=== PATIENT | male | born 1955 | race Caucasian/White ===

== ENCOUNTER 2018-05-24 22:05 | Emergency (ER) | payer OTHER ==
--- NOTE | 2018-05-24 22:46 | PDOC ---
History of Present Illness - General Chief Complaint: Pain, Acute Stated Complaint: SICK, ELEVATED BP History Source: Patient Exam Limitations: No Limitations - History of Present Illness Initial Comments: 05/24/18 22:39 63 yo M with a hx of HTN, HLD, BPH, depression, nephrolithiasis, and lyme disease presents to the emergency department with malaise since Friday. Per the patient, he felt like he has been "sick" since Friday. He endorses working with a coworker who was sick. Per the patient, he had had the following symptoms: dehydration, fever (yesterday, but declines so today), body aches, dysuria, SOB , nausea, non-productive cough, diarrhea (without hematochezia) and SOB. Concurrently, he has had periumbilical abdominal pain that radiates to the RUQ and LUQ that is cramping like sensation, 3/10, random onset. Per EMS, his BP was 196/120 initially and he denied chest pain, lightheadedness., headaches, and visual changes. Denies hematuria, ears and nose pain, and leg pain/ swelling. No recent travels, hx of DVT/PE, and recent surgeries. Shx: None Meds: buproprion, amlodipine, sertraline, tamsulosin, Allergies: NKDA Social: Denies tobacco, alcohol, and substance abuse. Past History - Past Medical History Allergies/Adverse Reactions: Allergies Allergy/AdvReac Type Severity Reaction Status Date / Time No Known Allergies Allergy Verified 05/24/18 22:33 Home Medications: Ambulatory Orders Amlodipine Besylate 5 mg PO DAILY 11/03/15 Buspirone HCl [Buspar -] 10 mg PO DAILY 11/03/15 Lisinopril [Zestril] 20 mg PO DAILY 11/03/15 Sertraline HCl 200 mg PO DAILY MDD 200mg 11/03/15 Tamsulosin HCl [Flomax -] 0.4 mg PO DAILY 11/09/15 HTN: Yes - Immunization History Immunization Up to Date: Yes - Suicide/Smoking/Psychosocial Hx Smoking History: Never smoked Have you smoked in the past 12 months: No Information on smoking cessation initiated: No Hx Alcohol Use: No Drug/Substance Use Hx: No Substance Use Type: None Review of Systems - Review of Systems Able to Perform ROS?: Yes Comments:: 05/24/18 22:46 pharyngeal erythema. epigastric tenderness. negative CVA. rhonchi in the lower base lungs. TMs good. Negative LAD. Is the patient limited Arabic proficient: No Constitutional: Yes: Malaise, Weakness. No: Chills, Unexplained wgt Loss HEENTM: No: Eye Pain, Recent change in vision, Ear Pain, Nose Pain, Throat Pain , Mouth Pain Respiratory: Yes: Cough, Shortness of Breath. No: SOB with Exertion, Productive cough, Hemoptysis Cardiac (ROS): No: Chest Pain, Irregular Heart Rate, Lightheadedness, Chest Tightness ABD/GI: Yes: Diarrhea, Nausea, Abdominal cramping. No: Poor Appetite, Poor Fluid Intake, Rectal Bleeding, Vomiting, Tarry Stools : Yes: Dysuria. No: Burning, Hematuria, Incontinence Musculoskeletal: No: Back Pain, Joint Pain, Neck Pain Integumentary: No: Bruising, Erythema, Rash Neurological: No: Headache, Numbness, Tingling, Tremors, Dizziness Psychiatric: Yes: Anxiety. No: Depression, Change in Appetite Endocrine: No: Unexplained Weight Gain Hematologic/Lymphatic: No: Anemia *Physical Exam - Vital Signs Last Vital Signs Temp Pulse Resp BP Pulse Ox 99 F 116 H 20 152/100 99 05/24/18 22:05 05/24/18 22:05 05/24/18 22:05 05/24/18 22:05 05/24/18 22:05 - Physical Exam General Appearance: Yes: Nourished, Appropriately Dressed. No: Apparent Distress, Intoxicated, Cachetic HEENT: positive: EOMI, MAXINE, Normal ENT Inspection, Normal Voice, Symmetrical, TMs Normal, Pharynx Normal, Hearing Grossly Normal. negative: Pale Conjunctivae , Scleral Icterus (R), Scleral Icterus (L), Pharyngeal Erythema, Tonsillar Exudate, Tonsillar Erythema, Nasal Congestion, Rhinorrhea, Sinus Tenderness, Excessive drooling Neck: positive: Trachea midline, Supple. negative: Tender, Lymphadenopathy (R) , Lymphadenopathy (L), Tender lateral, Tender midline Respiratory/Chest: positive: Lungs Clear, Normal Breath Sounds, Rapid RR. negative: Chest Tender, Respiratory Distress, Accessory Muscle Use, Rales, Rhonchi, Stridor, Wheezing Cardiovascular: positive: Regular Rhythm, S1, S2, Tachycardia. negative: Systolic Murmur Gastrointestinal/Abdominal: positive: Normal Bowel Sounds, Tender (periumbilical ), Flat, Soft. negative: Distended, Guarding, Rebound Lymphatic: negative: Adenopathy Musculoskeletal: positive: Normal Inspection. negative: CVA Tenderness, Vertebral Tenderness Extremity: positive: Normal Capillary Refill, Normal Inspection, Normal Range of Motion. negative: Tender, Swelling, Calf Tenderness Integumentary: positive: Normal Color, Dry, Warm. 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 negative: Normal Mood/Affect (anxious), EOM Palsy , Facial Droop, Sensory Deficit Moderate Sedation - Procedure Monitoring Vital Signs: Procedure Monitoring Vital Signs Temperature 99 F 05/24/18 22:05 Pulse Rate 116 H 05/24/18 22:05 Respiratory Rate 20 05/24/18 22:05 Blood Pressure 152/100 05/24/18 22:05 O2 Sat by Pulse Oximetry (%) 99 05/24/18 22:05 Heart Score/ECG Review - ECG Intrepretation Comment:: ventricular rate is 114 bpm, TX is 144 ms, QRS is 108 ms, QTc is 464 ms. sinus tachycardia without ST elevation or depression. ED Treatment Course - LABORATORY CBC & Chemistry Diagram: 05/24/18 23:50 05/24/18 23:50 Medical Decision Making - Medical Decision Making 63 yo M with a hx of HTN, HLD, BPH, depression, nephrolithiasis, and lyme disease presents to the emergency department with malaise since Friday. Initial vitals; Initial Vital Signs Temp Pulse Resp BP Pulse Ox 99 F 116 H 20 152/100 99 05/24/18 22:05 05/24/18 22:05 05/24/18 22:05 05/24/18 22:05 05/24/18 22:05 Work up: ddx: URI vs influenza vs strep throat (patient endorses sore throat) vs PNA vs ACS vs PNA vs pleuritis vs pericarditis vs pancreatitis vs gastritis vs GERD vs mesenteric ischemia Laboratory Tests 05/24/18 05/24/18 05/24/18 23:50 23:50 23:50 WBC 8.2 RBC 5.17 Hgb 16.3 Hct 44.3 MCV 85.8 MCH 31.5 MCHC 36.7 H RDW 14.3 Plt Count 147 MPV 7.7 Absolute Neuts (auto) 6.2 Neutrophils % 75.6 Lymphocytes % 14.5 Monocytes % 9.3 Eosinophils % 0.4 Basophils % 0.2 Nucleated RBC % 1 H Sodium Potassium Chloride Carbon Dioxide Anion Gap BUN Creatinine Creat Clearance w eGFR Random Glucose Lactic Acid Calcium Phosphorus Magnesium Total Bilirubin AST ALT Alkaline Phosphatase Creatine Kinase Troponin I Total Protein Albumin Lipase Urine Color Urine Appearance Urine pH Ur Specific [place] Urine Protein Urine Glucose (UA) Urine Ketones Urine Blood Urine Nitrite Urine Bilirubin Urine Urobilinogen Ur Leukocyte Esterase Urine WBC (Auto) Urine RBC (Auto) Urine Casts (Auto) U Epithel Cells (Auto) Urine Crystals (Auto) Urine Bacteria (Auto) Influenza A (Rapid) Negative Influenza B (Rapid) Negative Group A Strep Rapid Negative 05/24/18 05/24/18 05/25/18 23:50 23:50 02:25 WBC RBC Hgb Hct MCV MCH MCHC RDW Plt Count MPV Absolute Neuts (auto) Neutrophils % Lymphocytes % Monocytes % Eosinophils % Basophils % Nucleated RBC % Sodium 138 Potassium 3.0 L Chloride 110 H Carbon Dioxide 19 L Anion Gap 9 BUN 21 H Creatinine 1.3 Creat Clearance w eGFR 55.58 Random Glucose 120 H Lactic Acid 1.5 Calcium 10.7 H Phosphorus 1.4 L Magnesium 2.3 Total Bilirubin 0.6 AST 25 ALT 39 Alkaline Phosphatase 78 Creatine Kinase 91 Troponin I < 0.02 Total Protein 7.0 Albumin 3.7 Lipase 101 Urine Color Yellow Urine Appearance Clear Urine pH 5.5 Ur Specific [place] 1.027 Urine Protein 2+ Urine Glucose (UA) Negative Urine Ketones Trace H Urine Blood 2+ Urine Nitrite Negative Urine Bilirubin Negative Urine Urobilinogen 0.2 Ur Leukocyte Esterase Negative Urine WBC (Auto) 1 Urine RBC (Auto) 20 Urine Casts (Auto) 5 U Epithel Cells (Auto) 1.3 Urine Crystals (Auto) None seen Urine Bacteria (Auto) 0.666 Influenza A (Rapid) Influenza B (Rapid) Group A Strep Rapid patient had no CVA tenderness. patient had cbc within normal limits and labs were normal save for the following: UA shows 2+ blood with 20 RBCs, hypophosphatemia and hypokalemia. Patient's HR normalized once he felt less anxious. Denies rcent surgeries, hx of DVT and PE, and recent immobilization. influenza and strep negative. lipase negative. patient had significant improvement in symptoms after fluids, phosphate, and potassium were given. patient will follow up with PMD within 1 week after discharge. denies hx of nephrolithiasis. will follow up with referred urologist within 1 week for hematuria. patient was well at the time of discharge and was able to ambulate on their own volition. Dispo: Discharge *DC/Admit/Observation/Transfer Diagnosis at time of Disposition: URI (upper respiratory infection) Qualifiers: URI type: unspecified URI Qualified Code(s): J06.9 - Acute upper respiratory infection, unspecified - Discharge Dispostion Disposition: HOME Condition at time of disposition: Fair Decision to Admit order: No - Referrals Referrals: ON STAFF,NOT [Primary Care Provider] - [facility] [place] [facility] [place]Provider Group] Coleman Worrell MD., [Staff Physician] - - Patient Instructions Additional Instructions: you were seen in the emergency department for the evaluation of your malaise. your labs were within normal limits except for the following: low potassium and phosphorus. please follow up with your primary medical doctor in 1 week for follow up care and management. please return to the emergency department if you have worsening pain or new concerning symptoms such as blood in the urine, fevers, chills, intractable vomiting, and chest pain. thank you. - Post Discharge Activity
[2018-05-24 22:51] VITALS: BMI 27.4
[2018-05-24] MEDS ORDERED: ONDANSETRON 4 MG/2 ML VIAL IVPUSH ONE (23:01)
[2018-05-24] MEDS ORDERED: ACETAMINOPHEN 1000 MG/100 ML VIAL (NON FORMULARY) IVPB ONE (23:01)
[2018-05-24] MEDS ORDERED: SODIUM CHLORIDE 1,000 ML IV STA (23:01)
--- NOTE | 2018-05-24 23:27 | PDOC ---
Attending Attestation - Physicial Exam PE: 05/25/18 01:26 GENERAL: +Anxious. Afebrile. Well-appearing, well-nourished. No apparent distress. HEENT: Normocephalic, atraumatic. PERRL, EOM intact. CARDIOVASCULAR: Normal S1, S2. Regular rate and rhythm. PULMONARY: +Hyperventilating. Clear to auscultation bilaterally. ABDOMEN: +Periumbilical discomfort. Soft, non-distended. EXTREMITIES: Normal ROM in all four extremities. No gross deformities. SKIN: Warm, dry. No rash NEUROLOGICAL: No focal neurological deficits. <Hugh Hernandez - Last Filed: 05/25/18 01:26> - Resident Resident Name: Yoel Beebe - ED Attending Attestation I have performed the following: I have examined & evaluated the patient, The case was reviewed & discussed with the resident, I agree w/resident's findings & plan, Exceptions are as noted - HPI HPI: 05/24/18 23:26 pt BIBA for gen malaise,sore throat,body aches,nausea,cough since Friday - Medical Decision Making 05/24/18 23:28 diff diag includes influenza,pneumonia,viral syndrome, strep throat ,ACS, cholecystitis plan ekg,influenza,cxr,bc,ua,strep,comp,IVF 05/24/18 23:29 05/25/18 02:08 negative influenza and strep swabs cbc is wnl, there is no leukocytosis,no anemia chemistries reveals hypokalemia and he is being supplemented pt receiving IVF , urine pending <Zahida Lucas - Last Filed: 05/25/18 02:10> Attestations - Attestations 05/25/18 01:26 Documentation prepared by Hugh Hernandez, acting as medical recruiter for Zahida Lucas MD. <Hugh Hernandez - Last Filed: 05/25/18 01:26>
[2018-05-24] MEDS ORDERED: ALBUTEROL SO4 2.5/IPRATROPIUM 0.5 INH SOL 3 ML VIAL.NEB. NEB ONE ×2 (23:29→23:36)
[2018-05-25] MEDS ORDERED: ACETAMINOPHEN INJECTION 100 ML IVPB ONE
[2018-05-25] MEDS ORDERED: ONDANSETRON 4 MG/2 ML VIAL ONE
[2018-05-25 00:39] LABS: ALBUMIN 3.7 g/dl (3.4-5.0); ALK PHOS 78 U/L (45-117); ANION GAP 9 MMOL/L (8-16); BILIRUBIN,TOTAL 0.6 mg/dL (0.2-1); BLOOD UREA NITROGEN 21 mg/dL (7-18); CALCIUM 10.7 mg/dL (8.5-10.1); CHLORIDE 110 mmol/L (98-107); CO2 19 mmol/L (21-32); CREATININE 1.3 mg/dL (0.55-1.3); GLUCOSE,RANDOM 120 mg/dL (74-106); LIPASE 101 U/L (73-393); MAGNESIUM 2.3 mg/dL (1.8-2.4); PHOSPHOROUS 1.4 mg/dL (2.5-4.9); SGOT/AST 25 U/L (15-37); SGPT/ALT 39 U/L (13-61); SODIUM 138 mmol/L (136-145)
[2018-05-25 01:29] LABS: BASO % 0.2 % (0-2.0); EOS % 0.4 % (0-4.5); HEMATOCRIT 44.3 % (35.4-49); HEMOGLOBIN 16.3 GM/dL (11.7-16.9); LYMPH % 14.5 % (8-40); MCH 31.5 pg (25.7-33.7); MCHC 36.7 g/dl (32.0-35.9); MEAN CELL VOLUME 85.8 fl (80-96); MEAN PLT VOLUME 7.7 fl (7.5-11.1); MONO % 9.3 % (3.8-10.2); NEUT % 75.6 % (42.8-82.8); PLATELET COUNT 147 K/MM3 (134-434); RBC 5.17 M/mm3 (4.00-5.60); RDW 14.3 % (11.9-15.9); WHITE BLOOD COUNT 8.2 K/mm3 (4.0-10.0)
[2018-05-25] MEDS ORDERED: NAPH,MB-DB/K PH,MBDB POWDER PACKET PO ONE (01:52)
[2018-05-25] MEDS ORDERED: ALPRAZolam 0.25 MG TABLET PO ONE (02:13)
[2018-05-25] MEDS ORDERED: ALPRAZolam 0.25 MG TABLET ONE (03:10)
[2018-05-25 03:15] LABS: EPI CELLS 1.3 /HPF (0-5); HYALINE CASTS 5 /hpf (0-8); PH,URINE 5.5 (5.0-8.0); URINE APPEARANCE CLEAR; URINE BACTERIA 0.666 /hpf (NEGATIVE); URINE BILIRUBIN NEGATIVE (<2.0 mg/dL); URINE COLOR YELLOW; URINE GLUCOSE (UA) NEGATIVE (NEGATIVE); URINE KETONE TRACE (NEGATIVE); URINE LEUK ESTERASE NEGATIVE (NEGATIVE); URINE NITRITE NEGATIVE (NEGATIVE); URINE PROTEIN 2+ (NEGATIVE); URINE RBC 20 /hpf (0-4); URINE UROBILINOGEN 0.2 mg/dL (0.2-1.0); URINE WBC 1 /hpf (0-5)
[2018-05-25 04:56] VITALS: BP 142/78; PULSE 90; TEMP 98.2
[2018-05-25 08:43] LABS: URINE CRYSTALS NONE SEEN /hpf
--- NOTE | 2018-05-25 10:11 | EKG ---
Test Reason : Blood Pressure : / mmHG Vent. Rate : 114 BPM Atrial Rate : 114 BPM P-R Int : 144 ms QRS Dur : 108 ms QT Int : 336 ms P-R-T Axes : 034 072 074 degrees QTc Int : 463 ms SINUS TACHYCARDIA OTHERWISE NORMAL ECG WHEN COMPARED WITH ECG OF 08-NOV-2015 15:18, NO SIGNIFICANT CHANGE WAS FOUND Confirmed by SKIP MURPHY MD ([id number]) on 05/25/2018 10:10:51 AM Referred By: Confirmed By:SKIP MURPHY MD
== END 2018-05-25 04:59 | disposition home or self-care (01) ==
LOC: JER 22:05
DX: J06.9 Acute upper respiratory infection, unspecified (principal); I10 Essential (primary) hypertension; E78.00 Pure hypercholesterolemia, unspecified; N40.0 Benign prostatic hyperplasia without lower urinary tract symptoms; F32.9 Major depressive disorder, single episode, unspecified; Z87.442 Personal history of urinary calculi
CPT/HCPCS: 36415; 71046-TC-FY; 80053; 81003; 82550; 83605; 83690; 83735; 84100; 84484; 85025; 87040; 87070; 87086; 87804; 87880; 93005; 93010; 99282-25; J0131; J7030

== ENCOUNTER 2018-06-11 23:56 | Inpatient (IN) | payer OTHER ==
[2018-06-12 00:13] VITALS: BMI 27.4
--- NOTE | 2018-06-12 00:14 | PDOC ---
History of Present Illness - General Chief Complaint: SIRS, Suspected/Possible Stated Complaint: FEVER/CHILL Time Seen by Provider: 06/12/18 00:14 - History of Present Illness Initial Comments: 06/12/18 00:18 63 yo M with a hx of HTN, HLD, BPH, depression, nephrolithiasis, and lyme disease presents to the emergency department with several days of weakness and chills that have been ongoing since discharge from the ED several weeks ago but have become worse this evening. The patient reports that he feels fatigue, weakness, some generalized diffuse but improving chest tightness and chronic nonproductive cough. The patient denies n/v/c but admits to 1 day of loose stool today. Denies dysuria, hematuria. He has no other complaints at bedside. Past History - Past Medical History Allergies/Adverse Reactions: Allergies Allergy/AdvReac Type Severity Reaction Status Date / Time No Known Allergies Allergy Verified 06/12/18 00:11 Home Medications: Ambulatory Orders Amlodipine Besylate 5 mg PO DAILY 11/03/15 Buspirone HCl [Buspar -] 10 mg PO DAILY 11/03/15 Lisinopril [Zestril] 20 mg PO DAILY 11/03/15 Sertraline HCl 200 mg PO DAILY MDD 200mg 11/03/15 Tamsulosin HCl [Flomax -] 0.4 mg PO DAILY 11/09/15 COPD: No HTN: Yes - Immunization History Immunization Up to Date: Yes - Suicide/Smoking/Psychosocial Hx Smoking History: Never smoked Have you smoked in the past 12 months: No Information on smoking cessation initiated: No Hx Alcohol Use: No Drug/Substance Use Hx: No Substance Use Type: None *Physical Exam - Vital Signs Last Vital Signs Temp Pulse Resp BP Pulse Ox 99.9 F H 113 H 18 136/97 99 06/12/18 00:11 06/12/18 00:11 06/12/18 00:11 06/12/18 00:11 06/12/18 00:11 - Physical Exam Comments: 06/12/18 00:40 normal exam sinus tachycardia 06/12/18 00:48 ED Treatment Course - LABORATORY CBC & Chemistry Diagram: 06/12/18 00:58 06/12/18 00:58 Medical Decision Making - Medical Decision Making 06/12/18 00:34 63 yo M with a hx of HTN, HLD, BPH, depression, nephrolithiasis, and lyme disease presents to the emergency department with several days of weakness and chills that have been ongoing since discharge from the ED several weeks ago but have become worse this evening. The patient reports that he feels fatigue, weakness, some generalized diffuse but improving chest tightness and chronic nonproductive cough. The patient denies n/v/c but admits to 1 day of loose stool today. Denies dysuria, hematuria. He has n ED Course: consider ddx ibnlt: pna vs uti vs viral syndrome vs influenza r/o acs sepsis workup patient recieving 2L NS 06/12/18 00:47 EKG: sinus tachycardia 117bpm, T wave inversion inferolateral new from 05/2406/12/18 02:01 tropinemia, ginger, lactic acidosis repeat ekg ordered ASA 324 given will repeat lactic and troponin 3hr 06/12/18 02:03 patient anxious at bedside 2L NC oxygen given for comfort 06/12/18 02:15 repeat EKG with sinus tachy at 115bp with T wave inversion in II, III, aVF 06/12/18 02:30 Case discussed with inpatient medicine team *DC/Admit/Observation/Transfer Diagnosis at time of Disposition: Lactic acidosis, Elevated troponin, GINGER (acute kidney injury) - Discharge Dispostion Condition at time of disposition: Stable Decision to Admit order: Yes - Referrals Referrals: ON STAFF,NOT [Primary Care Provider] - - Patient Instructions - Post Discharge Activity
[2018-06-12] MEDS ORDERED: ACETAMINOPHEN 1000 MG/100 ML VIAL (NON FORMULARY) IVPB ONE (00:16)
[2018-06-12] MEDS ORDERED: SODIUM CHLORIDE 2,000 ML IV SCH (00:30)
[2018-06-12] MEDS ORDERED: ACETAMINOPHEN INJECTION 100 ML IVPB ONE (00:31)
[2018-06-12 01:09] LABS: BASO % 0.5 % (0-2.0); EOS % 1.5 % (0-4.5); HEMATOCRIT 46.5 % (35.4-49); HEMOGLOBIN 16.1 GM/dL (11.7-16.9); LYMPH % 3.6 % (8-40); MCH 30.4 pg (25.7-33.7); MCHC 34.5 g/dl (32.0-35.9); MEAN CELL VOLUME 88.1 fl (80-96); MEAN PLT VOLUME 7.1 fl (7.5-11.1); MONO % 4.2 % (3.8-10.2); NEUT % 90.2 % (42.8-82.8); PLATELET COUNT 172 K/MM3 (134-434); RBC 5.28 M/mm3 (4.00-5.60); RDW 14.2 % (11.9-15.9); WHITE BLOOD COUNT 8.9 K/mm3 (4.0-10.0)
--- NOTE | 2018-06-12 01:09 | PDOC ---
Attending Attestation - HPI HPI: The patient is a 63 year old male, with a significant PMH of HTN, HLD BPH, depression, nephrolithiasis, and lyme disease, who presents to the emergency department with generalized weakness and chills for several days. Patient was discharged from the ED 2.5 weeks ago for similar symptoms, and notes his symptoms have progressively worsened since. He endorses increased fatigue, diffuse chest tightness, and chronic dry cough. Patient also reports one episode of diarrhea earlier today. The patient denies shortness of breath, headache and dizziness. Denies fever, nausea, vomit, diarrhea and constipation. Denies dysuria, frequency, urgency and hematuria. Allergies: NKA Past surgical history: Social history: No reported PCP: Dr. Esperanza Mak ([facility]) 06/12/18 01:12 - Medical Decision Making Documentation prepared by JESSENIA Blue, acting as medical administrator for Winston Gruber MD. 06/12/18 01:14 <Sheron Leslie - Last Filed: 06/12/18 01:12> - Resident Resident Name: Vero France - ED Attending Attestation I have performed the following: I have examined & evaluated the patient, The case was reviewed & discussed with the resident, I agree w/resident's findings & plan, Exceptions are as noted - Physicial Exam PE: 06/12/18 04:39 Appears anxious, AOx3 NCAT Neck supple Oropharynx unremarkable LCTAB, good air movement, tachypneic Tachy, regular rhythm, no mrg Abd soft, generalized tenderness, no guarding, no rebound No c/c/e NFD - Medical Decision Making Vital sign derangement with generalized fatigue sepsis w/u no infectious focality on workup +lactate, +trop Cover broadly, fluid resus trend lactate, trend trop, ASA given Admit <Winston Gruber - Last Filed: 06/12/18 04:43>
[2018-06-12 01:23] LABS: INR 1.03 (0.83-1.09); PROTHROMBIN TIME (PATIENT) 12.1 SEC (9.7-13.0)
[2018-06-12 01:26] LABS: ACTIVATED PTT 28.6 SECONDS (25.2-36.5)
[2018-06-12 01:34] LABS: ALBUMIN 4.3 g/dl (3.4-5.0); ALK PHOS 101 U/L (45-117); ANION GAP 8 MMOL/L (8-16); BILIRUBIN,TOTAL 0.6 mg/dL (0.2-1); BLOOD UREA NITROGEN 23 mg/dL (7-18); CALCIUM 11.5 mg/dL (8.5-10.1); CHLORIDE 107 mmol/L (98-107); CO2 23 mmol/L (21-32); CREATININE 1.6 mg/dL (0.55-1.3); GLUCOSE,RANDOM 157 mg/dL (74-106); POTASSIUM 3.9 mmol/L (3.5-5.1); SGOT/AST 26 U/L (15-37); SGPT/ALT 36 U/L (13-61); SODIUM 139 mmol/L (136-145)
[2018-06-12] MEDS ORDERED: ASPIRIN 81 MG CHEWABLE TABLETS PO ONE (01:48)
[2018-06-12] MEDS ORDERED: ASPIRIN 81 MG CHEWABLE TABLETS ONE (01:54)
[2018-06-12] MEDS ORDERED: ALPRAZolam 0.25 MG TABLET PO ONE (02:59)
[2018-06-12] MEDS ORDERED: ONDANSETRON *ODT* 4 MG TABLET SL ONE (03:01)
[2018-06-12 03:02] LABS: URINE APPEARANCE Clear; URINE BILIRUBIN Negative (NEGATIVE); URINE COLOR Yellow; URINE GLUCOSE (UA) Negative (NEGATIVE); URINE KETONE Trace (NEGATIVE); URINE LEUK ESTERASE Negative (NEGATIVE); URINE NITRITE Negative (NEGATIVE); URINE PROTEIN 2+ (NEGATIVE); URINE UROBILINOGEN 0.2 mg/dL (0.2-1.0)
[2018-06-12] MEDS ORDERED: ONDANSETRON 4 MG/2 ML VIAL IVPUSH ONE (03:03)
[2018-06-12] MEDS ORDERED: ALPRAZolam 0.25 MG TABLET ONE (03:03)
[2018-06-12] MEDS ORDERED: ONDANSETRON 4 MG/2 ML VIAL ONE (03:04)
[2018-06-12] MEDS ORDERED: VANCOMYCIN 1 GM PREMIX - 1 GM/200 ML BAG IVPB ONE (03:30)
[2018-06-12] MEDS ORDERED: SODIUM CHLORIDE 1,000 ML IV SCH (03:30)
--- NOTE | 2018-06-12 03:34 | HP ---
CHIEF COMPLAINT: fatigue, weakness x 2 weeks PCP: none HISTORY OF PRESENT ILLNESS: 63 y/o M with HTN, HLD, BPH, depression, nephrolithiasis, lyme's dz (2000), who presents to the ED c/o fatigue, weakness over the past two weeks. As per pt, his sx began two weeks ago. States that at the time, he had visited his girlfriend in the hospital, since she was having heart surgery. While there, she was in an isolation room for a "heart infection," and once he donned his gown, he has felt unwell ever since. Also states that during the same time, he got into "problems with people in his apartment building." Would not describe further. These sx of weakness have been intermittent, without alleviating or exacerbating fx. Additionally, pt states that over the last 1-2 days, pt has had nausea without emesis, dysuria, subjective fever, chills, and 1-2 episodes of diarrhea without blood. During this time, he also endorses chest tightness and heaviness, without radiation, no overt chest pain. Has not had any drastic changes in diet. No sick contacts besides his girlfriend. Denies other sx. Father with early [place]. Unable to describe further; "I am getting so anxious, I can't talk about this." After my examination, pt began to have multiple episodes of NBNB emesis. ER course was notable for: (1) ofirmev (2) xanax (3) asa 324x1 (4) 2L NS Recent Travel: denies PAST MEDICAL HISTORY: as above PAST SURGICAL HISTORY: kidney sx (unable to describe) Social History: Smoking: denies Alcohol: denies Drugs: denies Family History: father- [place] at a young age- unable to describe further "I am getting so anxious, I can't talk about this" Allergies No Known Allergies Allergy (Verified 06/12/18 00:11) HOME MEDICATIONS: Home Medications Medication Instructions Recorded Amlodipine Besylate 5 mg PO DAILY 11/03/15 Buspirone HCl [Buspar -] 10 mg PO DAILY 11/03/15 Lisinopril [Zestril] 20 mg PO DAILY 11/03/15 Sertraline HCl 200 mg PO DAILY MDD 200mg 11/03/15 Tamsulosin HCl [Flomax -] 0.4 mg PO DAILY 11/09/15 meds need to be verified with patient and pharmacy. REVIEW OF SYSTEMS CONSTITUTIONAL: +weakness Absent: fever, chills, diaphoresis, generalized weakness, malaise, loss of appetite, weight change HEENT: Absent: rhinorrhea, nasal congestion, throat pain, throat swelling, difficulty swallowing, mouth swelling, ear pain, eye pain, visual changes CARDIOVASCULAR: +chest tightness Absent: chest pain, syncope, palpitations, irregular heart rate, lightheadedness , peripheral edema RESPIRATORY: +cough (chronic), SOB Absent: cough, shortness of breath, dyspnea with exertion, orthopnea, wheezing, stridor, hemoptysis GASTROINTESTINAL: Absent: abdominal pain, abdominal distension, nausea, vomiting, diarrhea, constipation, melena, hematochezia GENITOURINARY: Absent: dysuria, frequency, urgency, hesitancy, hematuria, flank pain, genital pain MUSCULOSKELETAL: Absent: myalgia, arthralgia, joint swelling, back pain, neck pain SKIN: Absent: rash, itching, pallor HEMATOLOGIC/IMMUNOLOGIC: Absent: easy bleeding, easy bruising, lymphadenopathy, frequent infections ENDOCRINE: Absent: unexplained weight gain, unexplained weight loss, heat intolerance, cold intolerance NEUROLOGIC: Absent: headache, focal weakness or paresthesias, dizziness, unsteady gait, seizure, mental status changes, bladder or bowel incontinence PSYCHIATRIC: Absent: anxiety, depression, suicidal or homicidal ideation, hallucinations. PHYSICAL EXAMINATION Vital Signs - 24 hr 06/12/18 06/12/18 00:11 00:15 Temperature 99.9 F H 100.2 F H Pulse Rate 113 H Respiratory 18 Rate Blood Pressure 136/97 O2 Sat by Pulse 99 Oximetry (%) GENERAL:Anxious, hyperventilating. diaphoretic. AAOx3 HEAD: Normal with no signs of trauma. EYES: Pupils equal, round and reactive to light, extraocular movements intact, sclera anicteric, conjunctiva clear. EARS, NOSE, THROAT: Ears normal, nares patent, oropharynx clear without exudates. Moist mucous membranes. NECK: Normal range of motion, supple LUNGS: Breath sounds equal, clear to auscultation bilaterally. No wheezes, and no crackles. No accessory muscle use. HEART: +tachycardic rate and rhythm, normal S1 and S2 without murmur, rub or gallop. ABDOMEN: Soft, diffusely tender, not distended LOWER EXTREMITIES: 2+ pt pulses, warm, well-perfused. No calf tenderness. No peripheral edema. NEUROLOGICAL: Cranial nerves II-XII intact. normal gait. PSYCHIATRIC: Cooperative. Good eye contact. SKIN: Warm, dry, normal turgor Laboratory Results 06/12/18 06/12/18 06/12/18 00:15 00:58 00:58 BUN 23 H Creatinine 1.6 H Lactic Acid Troponin I 0.28 H Urine Color Ur Leukocyte Esterase Influenza A (Rapid) Negative Influenza B (Rapid) Negative 06/12/18 06/12/18 01:08 02:53 BUN Creatinine Lactic Acid 2.7 H* Troponin I Urine Color Yellow Urine Appearance Clear Urine pH 7.0 D Ur Specific [place] 1.020 Urine Protein 2+ H Urine Glucose (UA) Negative Urine Ketones Trace Urine Blood Trace-lysed Urine Nitrite Negative Urine Bilirubin Negative Urine Urobilinogen 0.2 Ur Leukocyte Esterase Negative Influenza A (Rapid) Influenza B (Rapid) CXR: without evidence of acute infiltrates. official read pending EKG: +sinus tach 115bpm, with new TWI in inferolateral leads compared to previous. qtc 462ms ASSESSMENT/PLAN: 63 y/o M with HTN, HLD, BPH, depression, nephrolithiasis, lyme's dz (2000), who presents to the ED c/o fatigue, weakness over the past two weeks. #NSTEMI -s/p asa 324 -with new TWI in inferolateral leads. 0.28 with uptrend in trop (1.05), will tx with hep gtt, BB, high dose statin -repeat EKG stat -pending -cardio consult: Dr. Forrest; discussed case w . if EKG changes worsen, will need transfer -f/u ECHO, lipid profile, a1c -K>4, Mg>2 #Sepsis 2/2 unknown etiology -borderline febrile, tachy, with elevated lactic however unclear source possible 2/2 GI as with N/V/D. will obtain CTAP w/o contrast (GINGER) to check for colitis -suspect tropinemia is 2/2 to demand, however will trend. -will empirically start vanc, zosyn -f/u blood cx, ucx -trend lactic -IV NS #GINGER -possible 2/2 BPH. does not appear to be pre-renal. -verify meds; can c/w flomax after #Hypercalcemia -has elevated PTH level may need imaging for parathyroidism -will give IVF for now -Endocrine consult: Dr. Mathis #HTN -meds need to be verified -on amlodipine, lisinopril #HLD -meds need to be verified -f/u lipid panel -currently not on tx #F/E/N IV NS 100 cc/hr continue to follow lytes NPO for now as with vomiting #PPX Hep 5k SQ TID #Dispo admit to tele Visit type - Emergency Visit Emergency Visit: Yes ED Registration Date: 06/12/18 Care time: The patient presented to the Emergency Department on the above date and was hospitalized for further evaluation of their emergent condition. - New Patient This patient is new to me today: Yes Date on this admission: 06/12/18 - Critical Care Critical Care patient: No
[2018-06-12] MEDS ORDERED: VANCOMYCIN 1 GRAM (PRE-DOCKED) 1,000 MG/250 ML BAG IVPB ONE (03:38)
[2018-06-12] MEDS ORDERED: PIPERACILLIN/TAZOB 3.375 GM 3.375 GM/50 ML BAG IVPB ONE ×2 (03:39→17:23)
--- NOTE | 2018-06-12 03:46 | PN ---
Teaching Attending Note Name of Resident: Radha Bonds ATTENDING PHYSICIAN STATEMENT I saw and evaluated the patient. I reviewed the resident's note and discussed the case with the resident. I agree with the resident's findings and plan as documented. SUBJECTIVE: Patient is a 63 year old man with a PMH of HTN, HLD BPH, depression, nephrolithiasis, and lyme disease, who presents to the ER with generalized weakness and chills for several days. Patient was discharged from the ED 2.5 weeks ago for similar symptoms, and notes his symptoms have progressively worsened since. Says he has increased fatigue, diffuse chest tightness, and chronic dry cough. Patient also reports one episode of diarrhea earlier today. Says he visited his girlfriend in the hospital 2 weeks ago and thinks he has been ill from then. He didnot vomit at home, but here in the ER he had one episode of vomiting and has been very anxious. The patient denies shortness of breath, headache and dizziness. Denies fever, dysuria, frequency, urgency or hematuria. OBJECTIVE: Alert Vital Signs Period Temp Pulse Resp BP Sys/Padron Pulse Ox Last 24 Hr 99.9 F-100.2 F 113 18 136/97 99 HEENT: No Jaundice, eye redness or discharge, PERRLA, EOMI. Normocephalic, atraumatic. External ears are normal and hearing is grossly intact. No nasal discharge. Neck: Supple, nontender. No palpable adenopathy or thyromegaly. No JVD Chest: Good effort. Clear to auscultation and percussion. Heart: Regular. No S3, rub or murmur Abdomen: Not distended, soft, nontender and no HSM. No rebound or guarding. Normal bowel sounds. Ext: Peripheral pulses intact. No leg edema. Skin: Warm and dry. No petechiae, rash or ecchymosis. Neuro: Alert. Oriented x3. CN 2-12 grossly intact. Sensation grossly intact in all four extremities and DTR are symmetric. Psych: Very anxious. Appropriate mood and affect. Good insight. Current Medications Generic Name Dose Route Start Last Admin Trade Name Freq PRN Reason Stop Dose Admin Heparin Sodium (Porcine) 5,000 unit 06/12/18 06:00 Heparin - SQ TID OPHELIA Vancomycin HCl 1 gm in 200 mls @ 200 mls/hr 06/13/18 03:30 Vancomycin 1 Gm Premix - IVPB Q24H OPHELIA Protocol Vancomycin HCl 1 gm in 200 mls @ 133.333 mls/hr 06/12/18 03:30 Vancomycin 1 Gm Premix - IVPB 06/12/18 04:59 ONCE ONE Protocol Piperacillin Sod/Tazobactam 50 mls @ 100 mls/hr 06/13/18 02:00 Sod 3.375 gm/ Dextrose IVPB Q8H-IV OPHELIA Protocol Sodium Chloride 1,000 mls @ 100 mls/hr 06/12/18 03:30 Normal Saline - IV ASDIR OPHELIA Piperacillin Sod/Tazobactam 50 mls @ 100 mls/hr 06/12/18 03:30 Sod 3.375 gm/ Dextrose IVPB 06/12/18 18:29 Q8H-IV OPHELIA Protocol Home Medications Medication Instructions Recorded Amlodipine Besylate 5 mg PO DAILY 11/03/15 Buspirone HCl [Buspar -] 10 mg PO DAILY 11/03/15 Lisinopril [Zestril] 20 mg PO DAILY 11/03/15 Sertraline HCl 200 mg PO DAILY MDD 200mg 11/03/15 Tamsulosin HCl [Flomax -] 0.4 mg PO DAILY 11/09/15 Abnormal Lab Results 06/12/18 06/12/18 06/12/18 00:15 00:58 00:58 MPV 7.1 L Neutrophils % 90.2 H Lymphocytes % 3.6 L D BUN 23 H Creatinine 1.6 H Random Glucose 157 H Lactic Acid Calcium 11.5 H Troponin I 0.28 H Urine Protein 06/12/18 06/12/18 01:08 02:53 MPV Neutrophils % Lymphocytes % BUN Creatinine Random Glucose Lactic Acid 2.7 H* Calcium Troponin I Urine Protein 2+ H ASSESSMENT AND PLAN: 1. Sepsis/NSTEMI - No obvious source of infection. No acute abnormality on CXR and UA is pending. CT abd/pelvis is pending and blood cultures are being sent. Will treat with IV Vancomycin and Zosyn pending results of workup. Get HbA1c. Patient has elevated PSA, hypercalcemia and elevated PTH level. He is unsure about the extent of his workup for each. Needs urology followup, endocrine consult and Sestamibi scan to evaluate parathyroid glands. Will continue IV NS to correct hypercalcemia. Elevated troponin may be due to GINGER and demand ischemia from sepsis, but EKG shows T wave inversion in inferolatral leads and sinus tachycardia. Will trend troponin and repeat EKG to rule out ACS, admit to telemetry,get ECHO and consult cardiology. 2. GINGER - Cause unclear. Urinalysis pending and the CT abd/pelvis will assess the kidneys/bladder. Will consult nephrology and avoid nephrotoxic agents such as NSAIDS, aminoglycosides, contrast dyes and certain Alternative medicine products. 3. Hypertension - Restart outpatient antihypertensive drugs and revise regimen to ensure smooth [id number] good BP control. Nonpharmacologic measures to control hypertension like weight loss, salt restriction and exercise discussed. 4. DVT prophylaxis - Heparin 5000u sq tid. 5. Advance directives - Full code
[2018-06-12] MEDS: PIPERACILLIN/TAZOB 3.375 GM 3.375 GM in DEXTROSE 5%-WATER - 50 ML IVPB SCH ×3 (03:56→17:22)
[2018-06-12 05:01] LABS: CHOLESTEROL 145 mg/dL (50-200); HDL CHOLESTEROL 36 mg/dL (40-60); TRIGLYCERIDES 106 mg/dL (0-150)
[2018-06-12 05:20] LABS: URINE BACTERIA FEW /hpf (NEGATIVE)
[2018-06-12] MEDS ORDERED: HEPARIN NA (PORCINE) 5,000 UNITS/ML 1ML VIAL IVPUSH PRN ×2 (05:31)
[2018-06-12] MEDS ORDERED: ATORVASTATIN CA 80 MG TABLET (FP) PO SCH (05:32)
[2018-06-12] MEDS ORDERED: HEPARIN NA (PORCINE) 5,000 UNITS/ML 1ML VIAL ONE (05:41)
[2018-06-12] MEDS ORDERED: HEPARIN INFUSION - 25,000 UNITS/500 ML INFUS.BAG IVPB ONE (05:41)
[2018-06-12] MEDS ORDERED: METOPROLOL TARTRATE 25 MG TABLET (FP) PO SCH (05:45)
[2018-06-12] MEDS ORDERED: HEPARIN SOD,PORK IN 0.45% NACL 25,000 UNITS/500 ML INFUS.BAG IVPB SCH (05:45)
[2018-06-12] MEDS ORDERED: HEPARIN NA (PORCINE) 5,000 UNITS/ML 1ML VIAL SQ SCH (06:00)
[2018-06-12] MEDS ORDERED: POTASSIUM CHLORIDE TABS 20 MEQ TABLET.ER (FP) PO ONE ×2 (09:30→11:33)
[2018-06-12] MEDS ORDERED: MAGNESIUM SULF 50% (8.12 MEQ/2 ML-1 GM VIAL) IVPB ONE (09:30)
[2018-06-12] MEDS ORDERED: ASPIRIN 81 MG CHEWABLE TABLETS PO SCH (10:00)
[2018-06-12] MEDS ORDERED: ACETAMINOPHEN 1000 MG/100 ML VIAL (NON FORMULARY) IVPB PRN (10:04)
[2018-06-12] MEDS ORDERED: ACETAMINOPHEN 325 MG TABLET (FP) ONE (10:14)
[2018-06-12 10:16] LABS: BASO % 0.1 % (0-2.0); EOS % 0.2 % (0-4.5); HEMATOCRIT 46.1 % (35.4-49); HEMOGLOBIN 15.9 GM/dL (11.7-16.9); LYMPH % 2.8 % (8-40); MCH 30.3 pg (25.7-33.7); MCHC 34.4 g/dl (32.0-35.9); MEAN CELL VOLUME 87.8 fl (80-96); MEAN PLT VOLUME 7.2 fl (7.5-11.1); MONO % 4.7 % (3.8-10.2); NEUT % 92.2 % (42.8-82.8); PLATELET COUNT 177 K/MM3 (134-434); RBC 5.24 M/mm3 (4.00-5.60); RDW 14.5 % (11.9-15.9); WHITE BLOOD COUNT 9.3 K/mm3 (4.0-10.0)
--- NOTE | 2018-06-12 10:21 | EKG ---
Test Reason : Blood Pressure : / mmHG Vent. Rate : 115 BPM Atrial Rate : 115 BPM P-R Int : 128 ms QRS Dur : 110 ms QT Int : 334 ms P-R-T Axes : 032 -11 -45 degrees QTc Int : 462 ms SINUS TACHYCARDIA T WAVE ABNORMALITY, CONSIDER INFEROLATERAL ISCHEMIA ABNORMAL ECG WHEN COMPARED WITH ECG OF 12-JUN-2018 00:22, ST NO LONGER ELEVATED IN INFERIOR LEADS INVERTED T WAVES HAVE REPLACED NONSPECIFIC T WAVE ABNORMALITY IN LATERAL LEADS Confirmed by DAMIAN CHOW MD ([id number]) on 06/12/2018 10:20:52 AM Referred By: Confirmed By:DAMIAN CHOW MD
--- NOTE | 2018-06-12 10:22 | EKG ---
Test Reason : Blood Pressure : / mmHG Vent. Rate : 117 BPM Atrial Rate : 117 BPM P-R Int : 122 ms QRS Dur : 106 ms QT Int : 340 ms P-R-T Axes : 038 006 025 degrees QTc Int : 474 ms SINUS TACHYCARDIA ABNORMAL ECG WHEN COMPARED WITH ECG OF 24-MAY-2018 23:37, QUESTIONABLE CHANGE IN QRS AXIS ST ELEVATION NOW PRESENT IN INFERIOR LEADS T WAVE INVERSION NOW EVIDENT IN INFERIOR LEADS Confirmed by GERALDO HUMPHREYS, DAMIAN ([id number]) on 06/12/2018 10:22:22 AM Referred By: Confirmed By:DAMIAN CHOW MD
--- NOTE | 2018-06-12 10:22 | EKG ---
Test Reason : Blood Pressure : / mmHG Vent. Rate : 126 BPM Atrial Rate : 126 BPM P-R Int : 130 ms QRS Dur : 106 ms QT Int : 328 ms P-R-T Axes : 034 -13 -23 degrees QTc Int : 475 ms POOR DATA QUALITY, INTERPRETATION MAY BE ADVERSELY AFFECTED SINUS TACHYCARDIA INFERIOR INFARCT , AGE UNDETERMINED ABNORMAL ECG WHEN COMPARED WITH ECG OF 12-JUN-2018 01:59, INFERIOR INFARCT IS NOW PRESENT Confirmed by GERALDO HUMPHREYS, DAMIAN ([id number]) on 06/12/2018 10:22:28 AM Referred By: Confirmed By:DAMIAN CHOW MD
[2018-06-12 10:48] LABS: ALBUMIN 3.7 g/dl (3.4-5.0); ANION GAP 7 MMOL/L (8-16); BILIRUBIN,TOTAL 0.6 mg/dL (0.2-1); BLOOD UREA NITROGEN 24 mg/dL (7-18); CHLORIDE 111 mmol/L (98-107); CO2 19 mmol/L (21-32); CREATININE 1.4 mg/dL (0.55-1.3); GLUCOSE,RANDOM 131 mg/dL (74-106); SGOT/AST 49 U/L (15-37); SGPT/ALT 37 U/L (13-61); SODIUM 137 mmol/L (136-145); TOT PROT 7.2 g/dl (6.4-8.2)
[2018-06-12 10:51] LABS: ALK PHOS 83 U/L (45-117)
[2018-06-12] MEDS ORDERED: MAGNESIUM 1GM/D5W - 2 GM/200 ML IVPB IVPB ONE (10:59)
[2018-06-12] MEDS ORDERED: busPIRone HCL 5 MG TABLET PO SCH (11:15)
[2018-06-12] MEDS ORDERED: amLODIPine BESYLATE 5 MG TABLET (FP) PO SCH (11:15)
[2018-06-12] MEDS ORDERED: LISINOPRIL 20 MG TABLET (FP) PO SCH (11:15)
[2018-06-12] MEDS ORDERED: TAMSULOSIN HCL 0.4 MG CAP PO SCH (11:15)
[2018-06-12] MEDS ORDERED: amLODIPine BESYLATE 5 MG TABLET (FP) ONE (11:17)
[2018-06-12] MEDS ORDERED: LISINOPRIL 20 MG TABLET (FP) ONE (11:17)
[2018-06-12] MEDS ORDERED: SERTRALINE HCL 50 MG TABLET (FP) ONE (11:18)
[2018-06-12] MEDS ORDERED: TAMSULOSIN HCL 0.4 MG CAP ONE (11:18)
[2018-06-12] MEDS: SERTRALINE HCL 50 MG TABLET (FP) PO SCH ×2 (11:23→12:04)
--- NOTE | 2018-06-12 12:13 | ECHO ---
Name: SHIRA VELA Exam:Adult Echocardiogram Study Date: 06/12/2018 08:22 AM Age: 63 yrs Reason For Study: CHEST TIGHTNESS Height: 66 in Weight: 170 lb BSA: 1.9 m2 MMode/2D Measurements & Calculations IVSd: 0.98 cm Ao root diam: 3.1 cm LVIDd: 4.6 cm LA dimension: 3.0 cm LVIDs: 3.3 cm LVPWd: 0.96 cm EDV(Teich): 95.9 ml LVOT diam: 2.2 cm ESV(Teich): 43.6 ml Doppler Measurements & Calculations MV E max marco: 45.0 cm/sec Ao V2 max: 138.7 cm/sec MV A max marco: 81.4 cm/sec Ao max P.7 mmHg MV E/A: 0.55 Ao V2 mean: 103.0 cm/sec MV dec time: 0.11 sec Ao mean P.5 mmHg Ao V2 VTI: 20.0 cm MONICA(I,D): 2.9 cm2 AI P1/2t: 586.3 msec MONICA(V,D): 2.7 cm2 AI max marco: 367.7 cm/sec LV V1 max P.0 mmHg AI max P.1 mmHg LV V1 mean P.2 mmHg AI dec slope: 183.7 cm/sec2 LV V1 max: 100.6 cm/sec LV V1 mean: 69.3 cm/sec LV V1 VTI: 15.4 cm SV(LVOT): 57.0 ml TR max marco: 234.5 cm/sec TR max P.1 mmHg Med Peak E' Marco: 5.6 cm/sec Med E/e': 8.1 Lat Peak E' Marco: 6.9 cm/sec Lat E/e': 6.5 Procedure A two-dimensional transthoracic echocardiogram with color flow and Doppler was performed. The study w as technically difficult with many images being suboptimal in quality. Left Ventricle The left ventricular size, thickness and function are normal. The left ventricular ejection fraction is normal. There is apical septal wall akinesis. There is apical akinesis. Right Ventricle The right ventricle is normal in size and function. Atria Normal left and right atrial size and function. Mitral Valve There is mild mitral valve thickening. There is no mitral valve stenosis. There is trace to mild mitr al regurgitation. Tricuspid Valve There is mild tricuspid valve thickening. There is no tricuspid stenosis. There is mild tricuspid regurgitation. Right ventricular systolic pressure is normal. Aortic Valve The aortic valve is not well visualized. No hemodynamically significant valvular aortic stenosis. Mil d to moderate aortic regurgitation. Pulmonic Valve The pulmonic valve is not well visualized. Great Vessels The aortic root is normal size. Pericardium/Pleura There is a mild pericardial effusion. Interpretation Summary The left ventricular size, thickness and function are normal The aortic root is normal size. The study was technically difficult with many images being suboptimal in quality. There is mild tricuspid regurgitation. Right ventricular systolic pressure is normal. The left ventricular ejection fraction is normal. There is apical septal wall akinesis. There is apical akinesis. Mild to moderate aortic regurgitation. There is trace to mild mitral regurgitation. There is a mild pericardial effusion. MD Lars Townsend 06/12/2018 12:12 PM
[2018-06-12 12:44] LABS: ANISOCYTOSIS 0; MACROCYTOSIS 0; PLATELET ESTIMATE NORMAL
--- NOTE | 2018-06-12 16:10 | CON.CARD ---
Consult Consult Specialty:: Cardiology Referred by:: Patricia Reason for Consultation:: [place] - History of Present Illness Chief Complaint: Diarrhea History of Present Illness: 63 year old male with a pmhx of htn, hld, bph, depression, nephrolithiasis, lyme disease, and family history of CAD/father early TN in his 40s who presents with one day of diarrhea and weakness. On ER note reported some chest tightness on admission but right now denies and no chest pain. CT scan with colitis/gastroenteritis Cr 1.6 and trending down Trop 0.28 to 3.9 EKG: sinus tachycardia with borderline ST elevations inferior leads and TWI inferior leads on presentation. EKG now: inferior infarct pattern with inferior TWI - Alcohol/Substance Use Hx Alcohol Use: No - Smoking History Smoking history: Never smoked Have you smoked in the past 12 months: No Home Medications - Allergies Allergies/Adverse Reactions: Allergies Allergy/AdvReac Type Severity Reaction Status Date / Time No Known Allergies Allergy Verified 06/12/18 00:11 - Home Medications Home Medications: Ambulatory Orders Amlodipine Besylate 5 mg PO DAILY 11/03/15 Buspirone HCl [Buspar -] 10 mg PO BID 11/03/15 Lisinopril [Zestril] 20 mg PO DAILY 11/03/15 Sertraline HCl 200 mg PO DAILY MDD 200mg 11/03/15 Tamsulosin HCl [Flomax -] 0.4 mg PO DAILY 11/09/15 Bupropion HCl [Bupropion Xl] 150 mg PO AM 06/12/18 Vital Signs: Vital Signs Temperature 97.9 F 06/12/18 11:59 Pulse Rate 100 H 06/12/18 11:59 Respiratory Rate 18 06/12/18 11:59 Blood Pressure 121/88 06/12/18 11:59 O2 Sat by Pulse Oximetry (%) 94 L 06/12/18 11:59 - Other Data Labs, Other Data: CBC, BMP 06/12/18 09:50 06/12/18 09:50 INR, PTT INR 1.03 (0.83-1.09) 06/12/18 02:35 Troponin, BNP 06/12/18 06/12/18 06/12/18 00:15 04:20 06:55 Troponin I 0.28 H 1.05 H* 1.94 H* 06/12/18 06/12/18 09:50 12:00 Troponin I 3.71 H* 3.98 H* Troponin, BNP 06/12/18 06/12/18 06/12/18 00:15 04:20 06:55 Troponin I 0.28 H 1.05 H* 1.94 H* 06/12/18 06/12/18 09:50 12:00 Troponin I 3.71 H* 3.98 H* Assessment/Plan 63 year old male with a pmhx of htn, hld, bph, depression, nephrolithiasis, lyme disease, and family history of CAD/father early TN in his 40s who presents with one day of diarrhea and weakness. On ER note reported some chest tightness on admission but right now denies and no chest pain. CT scan with colitis/gastroenteritis Cr 1.6 and trending down Trop 0.28 to 3.9 EKG: sinus tachycardia with borderline ST elevations inferior leads and TWI inferior leads on presentation. EKG now: inferior infarct pattern with inferior TWI Echocardiogram: Nl lvef, apical septal akinesis, apical akinesis, mild to mod AR , mild MR 1) TN -Appears to have had an TN in setting of colitis Earlier ekgs with ST elevations. Now inferior infarct with inferior TWI Echo normal LVEF with wall motion abnormalities, nl rv -Aspirin/statin/heparin drip with goal ptt 50-70 Started on low dose metoprolol and will uptitrate if tolerates -Will transfer to [facility] and will monitor colitis and when improves hopefully on Friday plan for cardiac cath. 2) Colitis IV fluids -Stool cx CDiff Check ur and bld cxs -On zosyn -Will have ID consult on patient at [facility]
--- NOTE | 2018-06-12 17:11 | DS ---
Physical Exam: SUBJECTIVE: Patient seen and examined OBJECTIVE: Vital Signs Period Temp Pulse Resp BP Sys/Padron Pulse Ox Last 24 Hr 97.9 F-100.2 F 100-128 18-29 121-178/78-129 94-99 PHYSICAL EXAM GENERAL: The patient is awake, alert, and fully oriented, in no acute distress. HEAD: Normal with no signs of trauma. EYES: PERRL, extraocular movements intact, sclera anicteric, conjunctiva clear. ENT: Ears normal, nares patent, oropharynx clear without exudates, moist mucous membranes. NECK: Trachea midline, full range of motion, supple. LUNGS: Breath sounds equal, clear to auscultation bilaterally, no wheezes, no crackles, no accessory muscle use. HEART: Regular rate and rhythm, S1, S2 without murmur, rub or gallop. ABDOMEN: Soft, nontender, nondistended, normoactive bowel sounds, no guarding, no rebound, no hepatosplenomegaly, no masses. EXTREMITIES: 2+ pulses, warm, well-perfused, no edema. NEUROLOGICAL: Cranial nerves II through XII grossly intact. Normal speech, gait not observed. PSYCH: Normal mood, normal affect. SKIN: Warm, dry, normal turgor, no rashes or lesions noted. LABS Laboratory Results - last 24 hr 06/12/18 06/12/18 06/12/18 00:15 00:58 00:58 WBC 8.9 Corrected WBC (auto) RBC 5.28 Hgb 16.1 Hct 46.5 MCV 88.1 MCH 30.4 MCHC 34.5 RDW 14.2 Plt Count 172 MPV 7.1 L Absolute Neuts (auto) 8.0 Total Counted Neutrophils % 90.2 H Neutrophils % (Manual) Band Neutrophils % Lymphocytes % 3.6 L D Lymphocytes % (Manual) Monocytes % 4.2 Monocytes % (Manual) Eosinophils % 1.5 D Eosinophils % (Manual) Basophils % 0.5 Basophils % (Manual) Myelocytes % (Man) Promyelocytes % (Man) Blast Cells % (Manual) Nucleated RBC % 0 Metamyelocytes Differential Comment Hypersegmented Neuts Plasma Cells Smudge Cells Other Cell Type Hypochromia Toxic Granulation Dohle Bodies Jose Rods Platelet Estimate Platelet Comment Polychromasia Poikilocytosis Basophilic Stippling Anisocytosis Microcytosis Macrocytosis Spherocytes Siderocytes Sickle Cells Target Cells Tear Drop Cells Ovalocytes Stomatocytes Helmet Cells [place] Bodies [place] Cells Acanthocytes (Spur) Rouleaux Fragmented RBCs Schistocytes PT with INR INR PTT (Actin FS) Sodium 139 Potassium 3.9 Chloride 107 Carbon Dioxide 23 Anion Gap 8 BUN 23 H Creatinine 1.6 H Creat Clearance w eGFR 43.74 Random Glucose 157 H Hemoglobin A1c % Lactic Acid Calcium 11.5 H Magnesium Total Bilirubin 0.6 AST 26 ALT 36 Alkaline Phosphatase 101 Creatine Kinase Creatine Kinase Index CK-MB (CK-2) Troponin I 0.28 H Total Protein 8.0 Albumin 4.3 Triglycerides Cholesterol Total LDL Cholesterol HDL Cholesterol Urine Color Urine Appearance Urine pH Ur Specific [place] Urine Protein Urine Glucose (UA) Urine Ketones Urine Blood Urine Nitrite Urine Bilirubin Urine Urobilinogen Ur Leukocyte Esterase Urine RBC (Auto) Urine Bacteria (Auto) Influenza A (Rapid) Influenza B (Rapid) 06/12/18 06/12/18 06/12/18 00:58 01:08 02:35 WBC Corrected WBC (auto) RBC Hgb Hct MCV MCH MCHC RDW Plt Count MPV Absolute Neuts (auto) Total Counted Neutrophils % Neutrophils % (Manual) Band Neutrophils % Lymphocytes % Lymphocytes % (Manual) Monocytes % Monocytes % (Manual) Eosinophils % Eosinophils % (Manual) Basophils % Basophils % (Manual) Myelocytes % (Man) Promyelocytes % (Man) Blast Cells % (Manual) Nucleated RBC % Metamyelocytes Differential Comment Hypersegmented Neuts Plasma Cells Smudge Cells Other Cell Type Hypochromia Toxic Granulation Dohle Bodies Jose Rods Platelet Estimate Platelet Comment Polychromasia Poikilocytosis Basophilic Stippling Anisocytosis Microcytosis Macrocytosis Spherocytes Siderocytes Sickle Cells Target Cells Tear Drop Cells Ovalocytes Stomatocytes Helmet Cells [place] Bodies [place] Cells Acanthocytes (Spur) Rouleaux Fragmented RBCs Schistocytes PT with INR 12.10 INR 1.03 PTT (Actin FS) 28.6 Sodium Potassium Chloride Carbon Dioxide Anion Gap BUN Creatinine Creat Clearance w eGFR Random Glucose Hemoglobin A1c % Lactic Acid 2.7 H* Calcium Magnesium Total Bilirubin AST ALT Alkaline Phosphatase Creatine Kinase Creatine Kinase Index CK-MB (CK-2) Troponin I Total Protein Albumin Triglycerides Cholesterol Total LDL Cholesterol HDL Cholesterol Urine Color Urine Appearance Urine pH Ur Specific [place] Urine Protein Urine Glucose (UA) Urine Ketones Urine Blood Urine Nitrite Urine Bilirubin Urine Urobilinogen Ur Leukocyte Esterase Urine RBC (Auto) Urine Bacteria (Auto) Influenza A (Rapid) Negative Influenza B (Rapid) Negative 06/12/18 06/12/18 06/12/18 02:53 04:00 04:20 WBC Corrected WBC (auto) RBC Hgb Hct MCV MCH MCHC RDW Plt Count MPV Absolute Neuts (auto) Total Counted Neutrophils % Neutrophils % (Manual) Band Neutrophils % Lymphocytes % Lymphocytes % (Manual) Monocytes % Monocytes % (Manual) Eosinophils % Eosinophils % (Manual) Basophils % Basophils % (Manual) Myelocytes % (Man) Promyelocytes % (Man) Blast Cells % (Manual) Nucleated RBC % Metamyelocytes Differential Comment Hypersegmented Neuts Plasma Cells Smudge Cells Other Cell Type Hypochromia Toxic Granulation Dohle Bodies Jose Rods Platelet Estimate Platelet Comment Polychromasia Poikilocytosis Basophilic Stippling Anisocytosis Microcytosis Macrocytosis Spherocytes Siderocytes Sickle Cells Target Cells Tear Drop Cells Ovalocytes Stomatocytes Helmet Cells [place] Bodies [place] Cells Acanthocytes (Spur) Rouleaux Fragmented RBCs Schistocytes PT with INR INR PTT (Actin FS) Sodium Potassium Chloride Carbon Dioxide Anion Gap BUN Creatinine Creat Clearance w eGFR Random Glucose Hemoglobin A1c % Lactic Acid 1.7 Calcium Magnesium Total Bilirubin AST ALT Alkaline Phosphatase Creatine Kinase Creatine Kinase Index CK-MB (CK-2) Troponin I 1.05 H* Total Protein Albumin Triglycerides Cholesterol Total LDL Cholesterol HDL Cholesterol Urine Color Yellow Urine Appearance Clear Urine pH 7.0 D Ur Specific [place] 1.020 Urine Protein 2+ H Urine Glucose (UA) Negative Urine Ketones Trace Urine Blood Trace-lysed Urine Nitrite Negative Urine Bilirubin Negative Urine Urobilinogen 0.2 Ur Leukocyte Esterase Negative Urine RBC (Auto) 10-15 Urine Bacteria (Auto) Few Influenza A (Rapid) Influenza B (Rapid) 06/12/18 06/12/18 06/12/18 04:20 04:20 05:40 WBC Corrected WBC (auto) RBC Hgb Hct MCV MCH MCHC RDW Plt Count MPV Absolute Neuts (auto) Total Counted Neutrophils % Neutrophils % (Manual) Band Neutrophils % Lymphocytes % Lymphocytes % (Manual) Monocytes % Monocytes % (Manual) Eosinophils % Eosinophils % (Manual) Basophils % Basophils % (Manual) Myelocytes % (Man) Promyelocytes % (Man) Blast Cells % (Manual) Nucleated RBC % Metamyelocytes Differential Comment Hypersegmented Neuts Plasma Cells Smudge Cells Other Cell Type Hypochromia Toxic Granulation Dohle Bodies Jose Rods Platelet Estimate Platelet Comment Polychromasia Poikilocytosis Basophilic Stippling Anisocytosis Microcytosis Macrocytosis Spherocytes Siderocytes Sickle Cells Target Cells Tear Drop Cells Ovalocytes Stomatocytes Helmet Cells [place] Bodies [place] Cells Acanthocytes (Spur) Rouleaux Fragmented RBCs Schistocytes PT with INR INR PTT (Actin FS) Sodium Cancelled Potassium Cancelled Chloride Cancelled Carbon Dioxide Cancelled Anion Gap Cancelled BUN Cancelled Creatinine Cancelled Creat Clearance w eGFR Cancelled Random Glucose Cancelled Hemoglobin A1c % 5.2 Lactic Acid Calcium Cancelled Magnesium Cancelled Total Bilirubin Cancelled AST Cancelled ALT Cancelled Alkaline Phosphatase Cancelled Creatine Kinase Creatine Kinase Index CK-MB (CK-2) Troponin I Total Protein Cancelled Albumin Cancelled Triglycerides 106 Cholesterol 145 Total LDL Cholesterol 99 HDL Cholesterol 36 L Urine Color Urine Appearance Urine pH Ur Specific [place] Urine Protein Urine Glucose (UA) Urine Ketones Urine Blood Urine Nitrite Urine Bilirubin Urine Urobilinogen Ur Leukocyte Esterase Urine RBC (Auto) Urine Bacteria (Auto) Influenza A (Rapid) Influenza B (Rapid) 06/12/18 06/12/18 06/12/18 05:45 06:55 06:55 WBC Cancelled Corrected WBC (auto) Cancelled RBC Cancelled Hgb Cancelled Hct Cancelled MCV Cancelled MCH Cancelled MCHC Cancelled RDW Cancelled Plt Count Cancelled MPV Cancelled Absolute Neuts (auto) Cancelled Total Counted Cancelled Neutrophils % Cancelled Neutrophils % (Manual) Cancelled Band Neutrophils % Cancelled Lymphocytes % Cancelled Lymphocytes % (Manual) Cancelled Monocytes % Cancelled Monocytes % (Manual) Cancelled Eosinophils % Cancelled Eosinophils % (Manual) Cancelled Basophils % Cancelled Basophils % (Manual) Cancelled Myelocytes % (Man) Cancelled Promyelocytes % (Man) Cancelled Blast Cells % (Manual) Cancelled Nucleated RBC % Cancelled Metamyelocytes Cancelled Differential Comment Cancelled Hypersegmented Neuts Cancelled Plasma Cells Cancelled Smudge Cells Cancelled Other Cell Type Cancelled Hypochromia Cancelled Toxic Granulation Cancelled Dohle Bodies Cancelled Jose Rods Cancelled Platelet Estimate Cancelled Platelet Comment Cancelled Polychromasia Cancelled Poikilocytosis Cancelled Basophilic Stippling Cancelled Anisocytosis Cancelled Microcytosis Cancelled Macrocytosis Cancelled Spherocytes Cancelled Siderocytes Cancelled Sickle Cells Cancelled Target Cells Cancelled Tear Drop Cells Cancelled Ovalocytes Cancelled Stomatocytes Cancelled Helmet Cells Cancelled [place] Bodies Cancelled [place] Rings Cancelled [place] Cells Cancelled Acanthocytes (Spur) Cancelled Rouleaux Cancelled Fragmented RBCs Cancelled Schistocytes Cancelled PT with INR INR PTT (Actin FS) Sodium Potassium Chloride Carbon Dioxide Anion Gap BUN Creatinine Creat Clearance w eGFR Random Glucose Hemoglobin A1c % Lactic Acid 1.6 Calcium Magnesium Total Bilirubin AST ALT Alkaline Phosphatase Creatine Kinase Creatine Kinase Index CK-MB (CK-2) Troponin I 1.94 H* Total Protein Albumin Triglycerides Cholesterol Total LDL Cholesterol HDL Cholesterol Urine Color Urine Appearance Urine pH Ur Specific [place] Urine Protein Urine Glucose (UA) Urine Ketones Urine Blood Urine Nitrite Urine Bilirubin Urine Urobilinogen Ur Leukocyte Esterase Urine RBC (Auto) Urine Bacteria (Auto) Influenza A (Rapid) Influenza B (Rapid) 06/12/18 06/12/18 06/12/18 09:50 09:50 10:45 WBC 9.3 Corrected WBC (auto) RBC 5.24 Hgb 15.9 Hct 46.1 MCV 87.8 MCH 30.3 MCHC 34.4 RDW 14.5 Plt Count 177 MPV 7.2 L Absolute Neuts (auto) 8.6 H Total Counted Neutrophils % 92.2 H Neutrophils % (Manual) 94.0 H Band Neutrophils % 0.0 Lymphocytes % 2.8 L D Lymphocytes % (Manual) 0.0 L Monocytes % 4.7 Monocytes % (Manual) 3 L Eosinophils % 0.2 D Eosinophils % (Manual) 0.0 Basophils % 0.1 Basophils % (Manual) 0.0 Myelocytes % (Man) 0 Promyelocytes % (Man) 0 Blast Cells % (Manual) 0 Nucleated RBC % 0 Metamyelocytes 0 Differential Comment Hypersegmented Neuts Plasma Cells Smudge Cells Other Cell Type Hypochromia 0 Toxic Granulation Dohle Bodies Jose Rods Platelet Estimate Normal Platelet Comment Polychromasia 0 Poikilocytosis 0 Basophilic Stippling Anisocytosis 0 Microcytosis 0 Macrocytosis 0 Spherocytes Siderocytes Sickle Cells Target Cells Tear Drop Cells Ovalocytes Stomatocytes Helmet Cells [place] Bodies [place] Cells Acanthocytes (Spur) Rouleaux Fragmented RBCs Schistocytes PT with INR INR PTT (Actin FS) 66.9 H Sodium 137 Potassium 4.0 Chloride 111 H Carbon Dioxide 19 L Anion Gap 7 L BUN 24 H Creatinine 1.4 H Creat Clearance w eGFR 51.02 Random Glucose 131 H Hemoglobin A1c % Lactic Acid Calcium 10.0 Magnesium Total Bilirubin 0.6 AST 49 H ALT 37 Alkaline Phosphatase 83 Creatine Kinase Creatine Kinase Index CK-MB (CK-2) Troponin I 3.71 H* Total Protein 7.2 Albumin 3.7 Triglycerides Cholesterol Total LDL Cholesterol HDL Cholesterol Urine Color Urine Appearance Urine pH Ur Specific [place] Urine Protein Urine Glucose (UA) Urine Ketones Urine Blood Urine Nitrite Urine Bilirubin Urine Urobilinogen Ur Leukocyte Esterase Urine RBC (Auto) Urine Bacteria (Auto) Influenza A (Rapid) Influenza B (Rapid) 06/12/18 06/12/18 12:00 15:30 WBC Corrected WBC (auto) RBC Hgb Hct MCV MCH MCHC RDW Plt Count MPV Absolute Neuts (auto) Total Counted Neutrophils % Neutrophils % (Manual) Band Neutrophils % Lymphocytes % Lymphocytes % (Manual) Monocytes % Monocytes % (Manual) Eosinophils % Eosinophils % (Manual) Basophils % Basophils % (Manual) Myelocytes % (Man) Promyelocytes % (Man) Blast Cells % (Manual) Nucleated RBC % Metamyelocytes Differential Comment Hypersegmented Neuts Plasma Cells Smudge Cells Other Cell Type Hypochromia Toxic Granulation Dohle Bodies Jose Rods Platelet Estimate Platelet Comment Polychromasia Poikilocytosis Basophilic Stippling Anisocytosis Microcytosis Macrocytosis Spherocytes Siderocytes Sickle Cells Target Cells Tear Drop Cells Ovalocytes Stomatocytes Helmet Cells [place] Bodies [place] Cells Acanthocytes (Spur) Rouleaux Fragmented RBCs Schistocytes PT with INR INR PTT (Actin FS) Sodium Potassium Chloride Carbon Dioxide Anion Gap BUN Creatinine Creat Clearance w eGFR Random Glucose Hemoglobin A1c % Lactic Acid Calcium Magnesium Total Bilirubin AST ALT Alkaline Phosphatase Creatine Kinase 199 Creatine Kinase Index 3.5 CK-MB (CK-2) 7.0 H Troponin I 3.98 H* 3.67 H* Total Protein Albumin Triglycerides Cholesterol Total LDL Cholesterol HDL Cholesterol Urine Color Urine Appearance Urine pH Ur Specific [place] Urine Protein Urine Glucose (UA) Urine Ketones Urine Blood Urine Nitrite Urine Bilirubin Urine Urobilinogen Ur Leukocyte Esterase Urine RBC (Auto) Urine Bacteria (Auto) Influenza A (Rapid) Influenza B (Rapid) HOSPITAL COURSE: Date of Admission:06/12/18 Date of Discharge: 06/12/18 Discharge Summary Reason For Visit: ACUTE KIDNEY INJURT,ELEVATED TROPONIN LEVEL,LACTIC Current Active Problems GINGER (acute kidney injury) (Acute) Elevated troponin (Acute) Lactic acidosis (Acute) Condition: Stable - Instructions Diet, Activity, Other Instructions: You came in for fatigue and weakness over the last two weeks. We found that you have a an infection in your abdomen. We found that you are having an OK (heart attack) We have started you on Heparin Drip continued your home medications and started antibiotics (Vancomycin and Zosyn) We are transferring you to [facility] per Cardiology (Dr. Molina ) for cardiac catherization and further management. The receiving physician is Dr. Hassan. ID consult is already set up to continue management of colitis as readt on CT Abd. and Pelvis. Disposition: TRANSFER ACUTE CARE/OTHER HOSP - Home Medications Comprehensive Discharge Medication List: Ambulatory Orders Amlodipine Besylate 5 mg PO DAILY 11/03/15 Buspirone HCl [Buspar -] 10 mg PO BID 11/03/15 Lisinopril [Zestril] 20 mg PO DAILY 11/03/15 Sertraline HCl 200 mg PO DAILY MDD 200mg 11/03/15 Tamsulosin HCl [Flomax -] 0.4 mg PO DAILY 11/09/15 Bupropion HCl [Bupropion Xl] 150 mg PO AM 06/12/18
--- NOTE | 2018-06-12 20:36 | PN ---
Teaching Attending Note Name of Resident: Donato Tariq ATTENDING PHYSICIAN STATEMENT I saw and evaluated the patient. I reviewed the resident's note and discussed the case with the resident. I agree with the resident's findings and plan as documented. SUBJECTIVE: No ongoing chest discomfort. No palpitations. Anxious, Tearful OBJECTIVE: Febrile T 100.4, Hemodynamically Stable. Last Vital Signs Temp Pulse Resp BP Pulse Ox 97.9 F 100 H 18 121/88 94 L 06/12/18 11:59 06/12/18 11:59 06/12/18 11:59 06/12/18 11:59 06/12/18 11:59 HEENT - Atraumatic, Normocephalic Heart - S1, S2, RRR Lungs - clear to auscultation Abdomen - Soft, mild generalized tenderness. Bowel Sounds normal. Extremities - no edema, no calf tenderness Laboratory Results - last 24 hr 06/12/18 06/12/18 06/12/18 00:15 00:58 00:58 WBC 8.9 Corrected WBC (auto) RBC 5.28 Hgb 16.1 Hct 46.5 MCV 88.1 MCH 30.4 MCHC 34.5 RDW 14.2 Plt Count 172 MPV 7.1 L Absolute Neuts (auto) 8.0 Total Counted Neutrophils % 90.2 H Neutrophils % (Manual) Band Neutrophils % Lymphocytes % 3.6 L D Lymphocytes % (Manual) Monocytes % 4.2 Monocytes % (Manual) Eosinophils % 1.5 D Eosinophils % (Manual) Basophils % 0.5 Basophils % (Manual) Myelocytes % (Man) Promyelocytes % (Man) Blast Cells % (Manual) Nucleated RBC % 0 Metamyelocytes Differential Comment Hypersegmented Neuts Plasma Cells Smudge Cells Other Cell Type Hypochromia Toxic Granulation Dohle Bodies Jose Rods Platelet Estimate Platelet Comment Polychromasia Poikilocytosis Basophilic Stippling Anisocytosis Microcytosis Macrocytosis Spherocytes Siderocytes Sickle Cells Target Cells Tear Drop Cells Ovalocytes Stomatocytes Helmet Cells Garcia-Lamoni Bodies [place] Rings Felipe Cells Acanthocytes (Spur) Rouleaux Fragmented RBCs Schistocytes PT with INR INR PTT (Actin FS) Sodium 139 Potassium 3.9 Chloride 107 Carbon Dioxide 23 Anion Gap 8 BUN 23 H Creatinine 1.6 H Creat Clearance w eGFR 43.74 Random Glucose 157 H Hemoglobin A1c % Lactic Acid Calcium 11.5 H Magnesium Total Bilirubin 0.6 AST 26 ALT 36 Alkaline Phosphatase 101 Creatine Kinase Creatine Kinase Index CK-MB (CK-2) Troponin I 0.28 H Total Protein 8.0 Albumin 4.3 Triglycerides Cholesterol Total LDL Cholesterol HDL Cholesterol Urine Color Urine Appearance Urine pH Ur Specific [place] Urine Protein Urine Glucose (UA) Urine Ketones Urine Blood Urine Nitrite Urine Bilirubin Urine Urobilinogen Ur Leukocyte Esterase Urine RBC (Auto) Urine Bacteria (Auto) Influenza A (Rapid) Influenza B (Rapid) 06/12/18 06/12/18 06/12/18 00:58 01:08 02:35 WBC Corrected WBC (auto) RBC Hgb Hct MCV MCH MCHC RDW Plt Count MPV Absolute Neuts (auto) Total Counted Neutrophils % Neutrophils % (Manual) Band Neutrophils % Lymphocytes % Lymphocytes % (Manual) Monocytes % Monocytes % (Manual) Eosinophils % Eosinophils % (Manual) Basophils % Basophils % (Manual) Myelocytes % (Man) Promyelocytes % (Man) Blast Cells % (Manual) Nucleated RBC % Metamyelocytes Differential Comment Hypersegmented Neuts Plasma Cells Smudge Cells Other Cell Type Hypochromia Toxic Granulation Dohle Bodies Jose Rods Platelet Estimate Platelet Comment Polychromasia Poikilocytosis Basophilic Stippling Anisocytosis Microcytosis Macrocytosis Spherocytes Siderocytes Sickle Cells Target Cells Tear Drop Cells Ovalocytes Stomatocytes Helmet Cells Garcia-Lamoni Bodies [place] Rings In[place]ness Cells Acanthocytes (Spur) Rouleaux Fragmented RBCs Schistocytes PT with INR 12.10 INR 1.03 PTT (Actin FS) 28.6 Sodium Potassium Chloride Carbon Dioxide Anion Gap BUN Creatinine Creat Clearance w eGFR Random Glucose Hemoglobin A1c % Lactic Acid 2.7 H* Calcium Magnesium Total Bilirubin AST ALT Alkaline Phosphatase Creatine Kinase Creatine Kinase Index CK-MB (CK-2) Troponin I Total Protein Albumin Triglycerides Cholesterol Total LDL Cholesterol HDL Cholesterol Urine Color Urine Appearance Urine pH Ur Specific [place] Urine Protein Urine Glucose (UA) Urine Ketones Urine Blood Urine Nitrite Urine Bilirubin Urine Urobilinogen Ur Leukocyte Esterase Urine RBC (Auto) Urine Bacteria (Auto) Influenza A (Rapid) Negative Influenza B (Rapid) Negative 06/12/18 06/12/18 06/12/18 02:53 04:00 04:20 WBC Corrected WBC (auto) RBC Hgb Hct MCV MCH MCHC RDW Plt Count MPV Absolute Neuts (auto) Total Counted Neutrophils % Neutrophils % (Manual) Band Neutrophils % Lymphocytes % Lymphocytes % (Manual) Monocytes % Monocytes % (Manual) Eosinophils % Eosinophils % (Manual) Basophils % Basophils % (Manual) Myelocytes % (Man) Promyelocytes % (Man) Blast Cells % (Manual) Nucleated RBC % Metamyelocytes Differential Comment Hypersegmented Neuts Plasma Cells Smudge Cells Other Cell Type Hypochromia Toxic Granulation Dohle Bodies Jose Rods Platelet Estimate Platelet Comment Polychromasia Poikilocytosis Basophilic Stippling Anisocytosis Microcytosis Macrocytosis Spherocytes Siderocytes Sickle Cells Target Cells Tear Drop Cells Ovalocytes Stomatocytes Helmet Cells Garcia-Lamoni Bodies [place] Rings Felipe Cells Acanthocytes (Spur) Rouleaux Fragmented RBCs Schistocytes PT with INR INR PTT (Actin FS) Sodium Potassium Chloride Carbon Dioxide Anion Gap BUN Creatinine Creat Clearance w eGFR Random Glucose Hemoglobin A1c % Lactic Acid 1.7 Calcium Magnesium Total Bilirubin AST ALT Alkaline Phosphatase Creatine Kinase Creatine Kinase Index CK-MB (CK-2) Troponin I 1.05 H* Total Protein Albumin Triglycerides Cholesterol Total LDL Cholesterol HDL Cholesterol Urine Color Yellow Urine Appearance Clear Urine pH 7.0 D Ur Specific [place] 1.020 Urine Protein 2+ H Urine Glucose (UA) Negative Urine Ketones Trace Urine Blood Trace-lysed Urine Nitrite Negative Urine Bilirubin Negative Urine Urobilinogen 0.2 Ur Leukocyte Esterase Negative Urine RBC (Auto) 10-15 Urine Bacteria (Auto) Few Influenza A (Rapid) Influenza B (Rapid) 06/12/18 06/12/18 06/12/18 04:20 04:20 05:40 WBC Corrected WBC (auto) RBC Hgb Hct MCV MCH MCHC RDW Plt Count MPV Absolute Neuts (auto) Total Counted Neutrophils % Neutrophils % (Manual) Band Neutrophils % Lymphocytes % Lymphocytes % (Manual) Monocytes % Monocytes % (Manual) Eosinophils % Eosinophils % (Manual) Basophils % Basophils % (Manual) Myelocytes % (Man) Promyelocytes % (Man) Blast Cells % (Manual) Nucleated RBC % Metamyelocytes Differential Comment Hypersegmented Neuts Plasma Cells Smudge Cells Other Cell Type Hypochromia Toxic Granulation Dohle Bodies Jose Rods Platelet Estimate Platelet Comment Polychromasia Poikilocytosis Basophilic Stippling Anisocytosis Microcytosis Macrocytosis Spherocytes Siderocytes Sickle Cells Target Cells Tear Drop Cells Ovalocytes Stomatocytes Helmet Cells Garcia-Lamoni Bodies [place] Rings Inverness Cells Acanthocytes (Spur) Rouleaux Fragmented RBCs Schistocytes PT with INR INR PTT (Actin FS) Sodium Cancelled Potassium Cancelled Chloride Cancelled Carbon Dioxide Cancelled Anion Gap Cancelled BUN Cancelled Creatinine Cancelled Creat Clearance w eGFR Cancelled Random Glucose Cancelled Hemoglobin A1c % 5.2 Lactic Acid Calcium Cancelled Magnesium Cancelled Total Bilirubin Cancelled AST Cancelled ALT Cancelled Alkaline Phosphatase Cancelled Creatine Kinase Creatine Kinase Index CK-MB (CK-2) Troponin I Total Protein Cancelled Albumin Cancelled Triglycerides 106 Cholesterol 145 Total LDL Cholesterol 99 HDL Cholesterol 36 L Urine Color Urine Appearance Urine pH Ur Specific [place] Urine Protein Urine Glucose (UA) Urine Ketones Urine Blood Urine Nitrite Urine Bilirubin Urine Urobilinogen Ur Leukocyte Esterase Urine RBC (Auto) Urine Bacteria (Auto) Influenza A (Rapid) Influenza B (Rapid) 06/12/18 06/12/18 06/12/18 05:45 06:55 06:55 WBC Cancelled Corrected WBC (auto) Cancelled RBC Cancelled Hgb Cancelled Hct Cancelled MCV Cancelled MCH Cancelled MCHC Cancelled RDW Cancelled Plt Count Cancelled MPV Cancelled Absolute Neuts (auto) Cancelled Total Counted Cancelled Neutrophils % Cancelled Neutrophils % (Manual) Cancelled Band Neutrophils % Cancelled Lymphocytes % Cancelled Lymphocytes % (Manual) Cancelled Monocytes % Cancelled Monocytes % (Manual) Cancelled Eosinophils % Cancelled Eosinophils % (Manual) Cancelled Basophils % Cancelled Basophils % (Manual) Cancelled Myelocytes % (Man) Cancelled Promyelocytes % (Man) Cancelled Blast Cells % (Manual) Cancelled Nucleated RBC % Cancelled Metamyelocytes Cancelled Differential Comment Cancelled Hypersegmented Neuts Cancelled Plasma Cells Cancelled Smudge Cells Cancelled Other Cell Type Cancelled Hypochromia Cancelled Toxic Granulation Cancelled Dohle Bodies Cancelled Jose Rods Cancelled Platelet Estimate Cancelled Platelet Comment Cancelled Polychromasia Cancelled Poikilocytosis Cancelled Basophilic Stippling Cancelled Anisocytosis Cancelled Microcytosis Cancelled Macrocytosis Cancelled Spherocytes Cancelled Siderocytes Cancelled Sickle Cells Cancelled Target Cells Cancelled Tear Drop Cells Cancelled Ovalocytes Cancelled Stomatocytes Cancelled Helmet Cells Cancelled Garcia-Lamoni Bodies Cancelled [place] Rings Cancelled Felipe Cells Cancelled Acanthocytes (Spur) Cancelled Rouleaux Cancelled Fragmented RBCs Cancelled Schistocytes Cancelled PT with INR INR PTT (Actin FS) Sodium Potassium Chloride Carbon Dioxide Anion Gap BUN Creatinine Creat Clearance w eGFR Random Glucose Hemoglobin A1c % Lactic Acid 1.6 Calcium Magnesium Total Bilirubin AST ALT Alkaline Phosphatase Creatine Kinase Creatine Kinase Index CK-MB (CK-2) Troponin I 1.94 H* Total Protein Albumin Triglycerides Cholesterol Total LDL Cholesterol HDL Cholesterol Urine Color Urine Appearance Urine pH Ur Specific [place] Urine Protein Urine Glucose (UA) Urine Ketones Urine Blood Urine Nitrite Urine Bilirubin Urine Urobilinogen Ur Leukocyte Esterase Urine RBC (Auto) Urine Bacteria (Auto) Influenza A (Rapid) Influenza B (Rapid) 06/12/18 06/12/18 06/12/18 09:50 09:50 10:45 WBC 9.3 Corrected WBC (auto) RBC 5.24 Hgb 15.9 Hct 46.1 MCV 87.8 MCH 30.3 MCHC 34.4 RDW 14.5 Plt Count 177 MPV 7.2 L Absolute Neuts (auto) 8.6 H Total Counted Neutrophils % 92.2 H Neutrophils % (Manual) 94.0 H Band Neutrophils % 0.0 Lymphocytes % 2.8 L D Lymphocytes % (Manual) 0.0 L Monocytes % 4.7 Monocytes % (Manual) 3 L Eosinophils % 0.2 D Eosinophils % (Manual) 0.0 Basophils % 0.1 Basophils % (Manual) 0.0 Myelocytes % (Man) 0 Promyelocytes % (Man) 0 Blast Cells % (Manual) 0 Nucleated RBC % 0 Metamyelocytes 0 Differential Comment Hypersegmented Neuts Plasma Cells Smudge Cells Other Cell Type Hypochromia 0 Toxic Granulation Dohle Bodies Jose Rods Platelet Estimate Normal Platelet Comment Polychromasia 0 Poikilocytosis 0 Basophilic Stippling Anisocytosis 0 Microcytosis 0 Macrocytosis 0 Spherocytes Siderocytes Sickle Cells Target Cells Tear Drop Cells Ovalocytes Stomatocytes Helmet Cells Garcia-Lamoni Bodies [place] Rings [place] Cells Acanthocytes (Spur) Rouleaux Fragmented RBCs Schistocytes PT with INR INR PTT (Actin FS) 66.9 H Sodium 137 Potassium 4.0 Chloride 111 H Carbon Dioxide 19 L Anion Gap 7 L BUN 24 H Creatinine 1.4 H Creat Clearance w eGFR 51.02 Random Glucose 131 H Hemoglobin A1c % Lactic Acid Calcium 10.0 Magnesium Total Bilirubin 0.6 AST 49 H ALT 37 Alkaline Phosphatase 83 Creatine Kinase Creatine Kinase Index CK-MB (CK-2) Troponin I 3.71 H* Total Protein 7.2 Albumin 3.7 Triglycerides Cholesterol Total LDL Cholesterol HDL Cholesterol Urine Color Urine Appearance Urine pH Ur Specific [place] Urine Protein Urine Glucose (UA) Urine Ketones Urine Blood Urine Nitrite Urine Bilirubin Urine Urobilinogen Ur Leukocyte Esterase Urine RBC (Auto) Urine Bacteria (Auto) Influenza A (Rapid) Influenza B (Rapid) 06/12/18 06/12/18 12:00 15:30 WBC Corrected WBC (auto) RBC Hgb Hct MCV MCH MCHC RDW Plt Count MPV Absolute Neuts (auto) Total Counted Neutrophils % Neutrophils % (Manual) Band Neutrophils % Lymphocytes % Lymphocytes % (Manual) Monocytes % Monocytes % (Manual) Eosinophils % Eosinophils % (Manual) Basophils % Basophils % (Manual) Myelocytes % (Man) Promyelocytes % (Man) Blast Cells % (Manual) Nucleated RBC % Metamyelocytes Differential Comment Hypersegmented Neuts Plasma Cells Smudge Cells Other Cell Type Hypochromia Toxic Granulation Dohle Bodies Jose Rods Platelet Estimate Platelet Comment Polychromasia Poikilocytosis Basophilic Stippling Anisocytosis Microcytosis Macrocytosis Spherocytes Siderocytes Sickle Cells Target Cells Tear Drop Cells Ovalocytes Stomatocytes Helmet Cells Garcia-Lamoni Bodies [place] Rings In[place] Cells Acanthocytes (Spur) Rouleaux Fragmented RBCs Schistocytes PT with INR INR PTT (Actin FS) Sodium Potassium Chloride Carbon Dioxide Anion Gap BUN Creatinine Creat Clearance w eGFR Random Glucose Hemoglobin A1c % Lactic Acid Calcium Magnesium Total Bilirubin AST ALT Alkaline Phosphatase Creatine Kinase 199 Creatine Kinase Index 3.5 CK-MB (CK-2) 7.0 H Troponin I 3.98 H* 3.67 H* Total Protein Albumin Triglycerides Cholesterol Total LDL Cholesterol HDL Cholesterol Urine Color Urine Appearance Urine pH Ur Specific [place] Urine Protein Urine Glucose (UA) Urine Ketones Urine Blood Urine Nitrite Urine Bilirubin Urine Urobilinogen Ur Leukocyte Esterase Urine RBC (Auto) Urine Bacteria (Auto) Influenza A (Rapid) Influenza B (Rapid) Current Medications Generic Name Dose Route Start Last Admin Trade Name Freq PRN Reason Stop Dose Admin Acetaminophen 1,000 mg 06/12/18 10:04 06/12/18 10:20 Ofirmev Injection - IVPB 1,000 mg Q6H PRN Administration PAIN OR FEVER Amlodipine Besylate 5 mg 06/12/18 11:15 06/12/18 11:22 Norvasc - PO 5 mg DAILY OPHELIA Administration Aspirin 81 mg 06/12/18 10:00 06/12/18 10:20 Asa - PO 81 mg DAILY OPHELIA Administration Atorvastatin Calcium 80 mg 06/12/18 05:32 06/12/18 06:15 Lipitor - PO 80 mg HS OPHELIA Administration Buspirone HCl 10 mg 06/12/18 11:15 06/12/18 11:22 Buspar - PO 10 mg DAILY OPHELIA Administration Heparin Sodium (Porcine) 1,000 unit 06/12/18 05:31 Heparin - IVPUSH PRN PRN Heparin Heparin Sodium (Porcine) 5,000 unit 06/12/18 05:31 06/12/18 05:50 Heparin - IVPUSH 5,000 unit PRN PRN Administration Heparin Vancomycin HCl 1 gm in 200 mls @ 200 mls/hr 06/13/18 03:30 Vancomycin 1 Gm Premix - IVPB Q24H OPHELIA Protocol Piperacillin Sod/Tazobactam 50 mls @ 100 mls/hr 06/13/18 02:00 Sod 3.375 gm/ Dextrose IVPB Q8H-IV OPHELIA Protocol Sodium Chloride 1,000 mls @ 100 mls/hr 06/12/18 03:30 06/12/18 04:15 Normal Saline - IV 100 mls/hr ASDIR OPHELIA Administration HEPARIN SOD,PORK IN 0.45% NACL 25,000 units in 500 mls @ 20 mls/hr 06/12/18 05 :45 06/12/18 05:49 Heparin-1/2ns 25,000 Units/500 IVPB 1,000 units/hr TITR OPHELIA 20 mls/hr Administration Protocol 1,000 UNITS/HR Lisinopril 20 mg 06/12/18 11:15 06/12/18 11:22 Prinivil PO 20 mg DAILY [facility] Administration Metoprolol Tartrate 25 mg 06/12/18 05:45 06/12/18 06:15 Lopressor - PO 25 mg DAILY [facility] Administration Sertraline HCl 200 mg 06/12/18 12:00 06/12/18 12:04 Zoloft - PO Not Given DAILY [facility] Tamsulosin HCl 0.4 mg 06/12/18 11:15 06/12/18 11:22 Flomax - PO 0.4 mg DAILY@0830 [facility] Administration Home Medications Medication Instructions Recorded Amlodipine Besylate 5 mg PO DAILY 11/03/15 Buspirone HCl [Buspar -] 10 mg PO BID 11/03/15 Lisinopril [Zestril] 20 mg PO DAILY 11/03/15 Sertraline HCl 200 mg PO DAILY MDD 200mg 11/03/15 Tamsulosin HCl [Flomax -] 0.4 mg PO DAILY 11/09/15 Bupropion HCl [Bupropion Xl] 150 mg PO AM 06/12/18 ASSESSMENT AND PLAN: 63 year old male with HTN, HLD, BPH, Depression, Nephrolithiasis, History of Lyme's Disease (2000), presented to ED with weakness, nausea, diarrhea, subjective fevers/chills. Reported Chest pain on presentation, now resolved. 1. Acute NSTEMI Currently pain free. Elevated TropI (peak 3.98) with new T wave inversions inferolateral leads. Echo - apical septal wall akinesis, mod AR Eval by Cardiology- for transfer to [facility] for consideration of Cardiac Cath Treated for ACS with Aspirin loading and Heparin drip NTG SL for chest pain Hemodynamically Stable. 2. Sepsis secondary to Acute Gastroenteritis/Colitis Tachycardia, Tachypnea, Fever. WBC 18.8 Given Zosyn/Vanco in ED CT A/P - consistent with above Ongoing diarrhea, non-bloody. No nausea/vomiting. 3. GINGER - resolved with IV hydration. 4. HTN - Normally on Amlodipine, Lisinopril. 5. Anxiety/Depression - Continue Buspirone, Bupropion, Sertraline. 6. BPH - CT Shows bladder wall thickening and prostatic enlargement. Continue Flomax. 7. Hypomagnesemia - repleted. DVT Px - on Heparin drip Dispo - awaiting transfer to [facility] for further cardiac work up.
[2018-06-12 22:44] VITALS: BP 124/82; PULSE 95; TEMP 98
[2018-06-13] MEDS ORDERED: PIPERACILLIN/TAZOB 3.375 GM 3.375 GM in DEXTROSE 5%-WATER - 50 ML IVPB SCH (02:00)
[2018-06-13] MEDS ORDERED: VANCOMYCIN 1 GM PREMIX - 1 GM/200 ML BAG IVPB SCH (03:30)
== END 2018-06-12 22:44 | disposition short-term general hospital (02) | DRG 190 ==
LOC: JER 23:56 → SUPCPDRO 23:56 → JERBED 06-12 02:36
PROVIDERS: ADMIT Internal Medicine
DX: I21.4 Non-ST elevation (NSTEMI) myocardial infarction (principal); A41.9 Sepsis, unspecified organism; N17.9 Acute kidney failure, unspecified; E87.2 Acidosis; E83.52 Hypercalcemia; E78.5 Hyperlipidemia, unspecified; I10 Essential (primary) hypertension; F32.9 Major depressive disorder, single episode, unspecified; N40.0 Benign prostatic hyperplasia without lower urinary tract symptoms; Z82.49 Family history of ischemic heart disease and other diseases of the circulatory system; K52.9 Noninfective gastroenteritis and colitis, unspecified; Z86.19 Personal history of other infectious and parasitic diseases
CPT/HCPCS: 36415; 71045-TC-FY; 74176-TC; 80053; 80061; 81003; 82550; 82553; 83036; 83605; 83721; 84484; 85025; 85610; 85730; 87040; 87086; 87804; 93005; 93010; 93306-TC; 99285-25; J0131; J1644; J7030

== ENCOUNTER 2019-08-25 12:40 | Emergency (ER) | payer OTHER ==
[2019-08-25 13:10] VITALS: BP 138/70; PULSE 63; TEMP 98.7; BMI 25.8
--- NOTE | 2019-08-25 13:54 | PDOC ---
History of Present Illness - General Chief Complaint: Urinary Catheter Problem Stated Complaint: URINARY CATHETER PROBLEM Time Seen by Provider: 08/25/19 13:12 History Source: Patient Exam Limitations: No Limitations Past History - Travel History Traveled outside of the country in the last 30 days: No Close contact w/someone who was outside of country & ill: No - Medical History Allergies/Adverse Reactions: Allergies Allergy/AdvReac Type Severity Reaction Status Date / Time No Known Allergies Allergy Verified 07/30/19 08:20 Home Medications: Ambulatory Orders Amlodipine Besylate 5 mg PO DAILY 11/03/15 Buspirone HCl [Buspar -] 15 mg PO BID 11/03/15 Lisinopril [Zestril] 20 mg PO DAILY 11/03/15 Tamsulosin HCl [Flomax -] 0.4 mg PO DAILY 11/09/15 Aspirin 81 mg PO DAILY 07/30/19 Atorvastatin Ca [Lipitor] 80 mg PO HS 07/30/19 Carvedilol [Coreg -] 3.125 mg PO BID 07/30/19 Cephalexin Monohydrate [Keflex -] 500 mg PO Q6H 6 Days #24 capsule MDD 4 tab 07/30/19 Cholecalciferol (Vitamin D3) [Vitamin D3] 2,000 unit PO DAILY 07/30/19 Clopidogrel Bisulfate [Plavix] 75 mg PO DAILY 07/30/19 Metoprolol Tartrate 50 mg PO DAILY 07/30/19 Zinc 15 mg PO DAILY 07/30/19 COPD: No HTN: Yes Psychiatric Problems: Yes (anxiety/depression) - Immunization History Immunization Up to Date: Yes - Psycho-Social/Smoking History Smoking History: Never smoked Have you smoked in the past 12 months: No - Substance Abuse Hx (Audit-C & DAST Scrn) How often the patient has a drink containing alcohol: Never Score: In Men: 4 or > Positive; In Women: 3 or > Positive: 0 Screen Result (Pos requires Nsg. Audit-10AR): Negative In the last yr the pt used illegal drug/Rx for NonMed reason: No Score: Yes response is considered Positive: 0 Screen Result (Positive result requires Nsg. DAST-10): Negative Review of Systems - Review of Systems Able to Perform ROS?: Yes Comments:: 08/25/19 13:51 CONSTITUTIONAL: Absent: fever, chills, diaphoresis, generalized weakness, malaise, loss of appetite HEENT: Absent: rhinorrhea, nasal congestion, throat pain, throat swelling, difficulty swallowing, mouth swelling, ear pain, eye pain, visual Changes CARDIOVASCULAR: Absent: chest pain, loss of consciousness, palpitations, irregular heart rate, peripheral edema RESPIRATORY: Absent: cough, shortness of breath, dyspnea with exertion, orthopnea, wheezing, stridor, hemoptysis GASTROINTESTINAL: Absent: abdominal pain, abdominal distension, nausea, vomiting, diarrhea, constipation, melena, hematochezia GENITOURINARY: Absent: dysuria, frequency, urgency, hesitancy, hematuria, flank pain, genital pain MUSCULOSKELETAL: Absent: myalgia, arthralgia, joint swelling SKIN: Absent: rash, itching, pallor HEMATOLOGIC/IMMUNOLOGIC: Absent: easy bleeding, easy bruising, lymphadenopathy, frequent infections ENDOCRINE: Absent: unexplained weight gain, unexplained weight loss, heat intolerance, cold intolerance NEUROLOGIC: Absent: headache, focal weakness or paresthesias, dizziness, unsteady gait, seizure, mental status changes, bladder or bowel incontinence PSYCHIATRIC: Absent: anxiety, depression, suicidal or homicidal ideation, hallucinations. Is the patient limited Yi proficient: No *Physical Exam - Vital Signs Last Vital Signs Temp Pulse Resp BP Pulse Ox 98.7 F 63 17 138/70 99 08/25/19 13:07 08/25/19 13:07 08/25/19 13:07 08/25/19 13:07 08/25/19 13:07 - Physical Exam 08/25/19 13:51 GENERAL: The patient is awake, alert, and fully oriented, in no acute distress. HEAD: Normal with no signs of trauma. EYES: Pupils equal, round and reactive to light, extraocular movements intact, sclera anicteric, conjunctiva clear. EXTREMITIES: Urias catheter in place attached to the right leg. Leg bag appears broken and has a plastic shopping bag wrapped around. Normal range of motion, no edema. NEUROLOGICAL: Normal speech, normal gait. PSYCH: Normal mood, normal affect. SKIN: Warm, Dry, normal turgor, no rashes or lesions noted. Medical Decision Making - Medical Decision Making 08/25/19 13:52 Patient is a 64-year-old male with past medical history of urinary retention, presents to the ER today for a torn leg bag. He states that he has a catheter for urinary retention. He notes that he tore it today so he came to the ER to get a new one. He has no other complaints at this time. Denies fevers, back pain, nausea, vomiting and foul-smelling urine. A/P: Urine bag replacement On exam there is one leg bag attached to a indwelling Urias catheter, appears broken. Plastic bag wrapped around the leg bag. Bag replaced Discharge home I discussed the physical exam findings, ancillary test results and final diagnoses with the patient. I answered all of the patient's questions. The patient was satisfied with the care received and felt comfortable with the discharge plan and treatment plan. The Patient agrees to follow up with the primary care physician/specialist within 24-72 hours. Return precautions were given. Discharge - Discharge Information Problems reviewed: Yes Clinical Impression/Diagnosis: Urias catheter problem Qualifiers: Encounter type: initial encounter Qualified Code(s): T83.9XXA - Unspecified complication of genitourinary prosthetic device, implant and graft, initial encounter Condition: Stable Disposition: HOME - Admission No - Follow up/Referral - Patient Discharge Instructions Patient Printed Discharge Instructions: How to Care for Your Urias Catheter -- Male Additional Instructions: You were seen for an issue with your Urias catheter today. The bag was replaced. Please make sure to take good care of your Urias catheter and use good hygiene. Follow-up with your urologist as scheduled. Return to the ER for any new or worsening symptoms. - Post Discharge Activity
== END 2019-08-25 14:16 | disposition home or self-care (01) ==
LOC: JERFT 12:40
DX: T83.9XXA Unspecified complication of genitourinary prosthetic device, implant and graft, initial encounter (principal)
CPT/HCPCS: 99282-25